=== PATIENT | female | born 1960 | race Caucasian/White ===

== ENCOUNTER 2017-01-12 05:44 | Inpatient (IN) | payer MEDICARE, MEDICAID ==
[~2017-01-12] VITALS: Ht 182.9 cm; Wt 67.5 kg
[2017-01-12] VITALS (7 sets, daily range): BP systolic 139–153; BP diastolic 81–87; PULSE 78–96; RESP 14–18; TEMP 97.6–98.2; O2SAT 97–99
[~2017-01-12 05:44] MED LIST: ALBU1AER INH; AMIT100T6 PO; CARI350T20 PO; CEPH500C3 PO; CITA-48 PO; CITA40TA4 PO; DOLU1TAB PO; EPZITAB4 PO; ESTR20IN IM; GABA300C3 PO; GABA300C5 PO; HYDR-2768 PO; HYDR-3534 PO; HYDR-3535 PO; IBUP800T23 PO; IPRAAER INH; LISI-357 PO; MIRA0.12 PO; NEXI40CA PO; SOMA350T PO
[2017-01-12] MEDS ORDERED: MIRA0.12 PO (06:11)
[2017-01-12] MEDS ORDERED: EPZITAB3 PO (06:11)
[2017-01-12] MEDS ORDERED: ALBUAER3 INH (06:11)
[2017-01-12] MEDS ORDERED: DOLU1TAB PO (06:11)
[2017-01-12] MEDS ORDERED: AMIT1TAB79 (06:11)
[2017-01-12] MEDS ORDERED: NEXI40CA PO (06:11)
[2017-01-12] MEDS ORDERED: IPRAAER INH (06:11)
[2017-01-12] MEDS ORDERED: LISI-519 PO (06:11)
[2017-01-12] MEDS ORDERED: HYDR25TA5 PO (06:11)
[2017-01-12] MEDS ORDERED: SODIUM CHLOR 0.9% 1000 ML INJ 1,000 ML IV SCH (06:21)
[2017-01-12] MEDS ORDERED: PANTOPRAZOLE INJ 80 MG in SODIUM CHLORIDE 0.9% INJ 35 ML IV ONE (06:30)
[2017-01-12] MEDS ORDERED: SODIUM CHLORIDE 0.9% FLUSH 10 ML FLUSH IVF PRN (06:30)
--- NOTE | 2017-01-12 06:36 | PD ---
HPI Chief Complaint: GI Complaint Time Seen by Provider: 05:57 Travel History International Travel<30 days: No Contact w/Intl Traveler<30days: No Traveled to known affect area: No History of Present Illness HPI The patient is 56 year old female transgender patient who presents to the [facility] emergency department with a history of rectal pain that began 2 weeks ago with a hemorrhoid. The patient reports that she suffers with chronic constipation related to a history of opiate use for chronic pain. She reports that the only way she can move her bowels this by using stool softeners or fleets enemas. She reports that the hemorrhoid has become increasingly painful. She reports that she has intermittently had blood in the stool and on the toilet paper with wiping. 3 days ago she developed dark stools and persistent bleeding with blood clots in the toilet. She reports having lower abdominal cramping. She denies ever having a colonoscopy previously. She denies having a primary care physician. She reports that she was discharged from the [facility] as she missed for appointments. The patient's history is complicated by having HIV diagnosed in 1988. The patient is on retroviral medications. She reports that her viral load is undetectable. She reports that she last moved her bowels yesterday with the bloody stool. She reports that today all that she seems to be passing are blood clots. The patient has been taking ibuprofen multiple times a day for relief of discomfort related to the hemorrhoid. The patient denies any recent fevers, cough, congestion, neck pain, chest pain, shortness of breath, vomiting, urinary symptoms, or neurologic symptoms. [facility] Past Medical History Narrative Medical The patient's past medical history is significant for HIV first diagnosed in 1988 currently on retroviral medications, history of atrial fibrillation, anxiety disorder, acid reflux, hypertension, COPD. The patient is transgender. Atrial Fibrillation: Yes Autoimmune Disease: Yes (HIV SINCE 1988) Blood Disorders: Yes (HIV X 20YEARS ) Anxiety: Yes GERD: Yes Hypertension: Yes Immunizations Current: Yes Past Surgical History Narrative Surgical The patient's past surgical history is significant for breast augmentation, umbilical hernia repair, Abdominal Surgery: Yes (UMBILICAL HERNIA) Other Surgery: Yes (BREAST AUGMENTATION) Social History Alcohol Use: Yes (RARE) Tobacco Use: Yes (OCCASIONALLY ) Substance Use: No Allergies-Medications (Allergen,Severity, Reaction): Coded Allergies: No Known Allergies (Verified , 01/12/17) Reported Meds & Prescriptions Reported Meds & Active Scripts Active Carisoprodol 350 Mg Tab 350 Mg PO TID PRN Citalopram (Citalopram Hydrobromide) 40 Mg Tab 40 Mg PO DAILY Lortab (Hydrocodone-Acetaminophen) 7.5-325 Mg Tab 1 Tab PO BID PRN Soma (Carisoprodol) 350 Mg Tab 350 Mg PO TID PRN Gabapentin 300 Mg Cap 300 Mg PO TID Ibuprofen 800 Mg Tab 800 Mg PO Q8H PRN Reported Mirapex (Pramipexole Dihydrochloride) 0.125 Mg Tab 0.125 Mg PO DAILY Lisinopril 5 Mg Tab 5 Mg PO DAILY Hydrochlorothiazide 25 Mg Tab 25 Mg PO DAILY Nexium (Esomeprazole DR) 40 Mg Capdr 40 Mg PO DAILY Tivicay (Dolutegravir Sodium) 50 Mg Tab 50 Mg PO DAILY Combivent Respimat Inh (Ipratropium-Albuterol Inh) 20-100 Intermediate/Act Aero 1 Puff INH QID Elavil (Amitriptyline HCl) 25 Mg Tab Proair Hfa 8.5 GM Inh (Albuterol Sulfate) 90 Mcg/Act Aer 1 Puff INH Q4H PRN 108 mcg/actuation Epzicom (Abacavir-Lamivudine) 600-300 Mg Tab 1 Tab PO DAILY Hazardous agent; use appropriate precautions for handling & disposal. Review of Systems Except as stated in HPI: all other systems reviewed are Neg General / Constitutional: No: Fever Eyes: No: Visual changes HENT: No: Headaches Cardiovascular: No: Chest Pain or Discomfort Respiratory: No: Shortness of Breath Gastrointestinal: Positive: Abdominal Pain, Hematochezia, Constipation, Changes in Bowel Habits, No: Nausea, Vomiting, Diarrhea, Hematemesis, Indigestion, Loss of Appetite Genitourinary: No: Dysuria Musculoskeletal: No: Pain Skin: No Rash Neurologic: No: Weakness Psychiatric: No: Depression Endocrine: No: Polydipsia Hematologic/Lymphatic: No: Easy Bruising Physical Exam Narrative General: The patient is well-developed well-nourished female in no acute distress. Head and Neck exam: Head is normocephalic atraumatic. Eyes: EOMI, pupils are equal round and reactive to light. Nose: Midline septum with pink mucous membranes Mouth: Dentition unremarkable. Moist mucus membranes. Posterior oropharynx is not erythematous. No tonsillar hypertrophy. Uvula midline. Airway patent. Neck: No palpable lymphadenopathy. No nuchal rigidity. No thyromegaly. Cardiovascular: Regular rate and rhythm without murmurs, gallops, or rubs. Lungs: Clear to auscultation bilaterally. No wheezes, rhonchi, or rales. Abdomen: Soft, with reported discomfort on palpation along the suprapubic and bilateral lower quadrants of the abdomen. No guarding, rebound, or rigidity. Normal bowel sounds are audible. No tenderness on palpation of focally over McBurney' s point. Extremities: No clubbing, cyanosis, or edema. 2+ pulses in all 4 extremities. Back: No costovertebral angle tenderness to palpation. Neurologic Exam: Grossly nonfocal. Skin Exam: No rash noted. Intact skin that is warm and dry. RECTAL EXAM: The patient has hard stool palpated in the rectal vault. Stool is dark with gross blood also noted. The patient is noted to have a thrombosed hemorrhoid that is tender on palpation. Data Data Last Documented VS Vital Signs Date Time Temp Pulse Resp B/P Pulse Ox O2 Delivery O2 Flow Rate FiO2 01/12/17 05:56 18 01/12/17 05:53 97.6 96 150/86 97 Orders Complete Blood Count With Diff (01/12/17 06:21) Comprehensive Metabolic Panel (01/12/17 06:21) Lipase (01/12/17 06:21) Prothrombin Time / Inr (Pt) (01/12/17 06:21) Act Partial Throm Time (Ptt) (01/12/17 06:21) Urinalysis - C+S If Indicated (01/12/17 06:21) Type And Screen (01/12/17 06:21) Ecg Monitoring (01/12/17 06:21) Iv Access Insert/Monitor (01/12/17 06:21) Oximetry (01/12/17 06:21) Sodium Chlor 0.9% 1000 Ml Inj (Ns 1000 M (01/12/17 06:21) Sodium Chloride 0.9% Flush (Ns Flush) (01/12/17 06:30) Pantoprazole Inj (Protonix Inj) (01/12/17 06:30) Pantoprazole Inj (Protonix Inj) (01/12/17 06:30) [facility] Medical Decision Making Medical Screen Exam Complete: Yes Emergency Medical Condition: Yes Medical Record Reviewed: Yes Differential Diagnosis Diverticulosis, versus AVM malformation, versus hemorrhoidal bleed, versus colon cancer, versus rectal cancer, versus peptic ulcer disease Narrative Course During the course of the patients emergency department visit, the patients history, examination, and differential diagnosis were reviewed with the patient. The patient had IV access obtained and blood work sent for analysis. The patient was on a irb compliance coordinator with oximetry and blood pressure monitoring. A CT scan of the abdomen and pelvis was ordered. The patient was initially provided normal saline IV fluids, Protonix 80 mg IV 1 , Protonix drip was ordered to follow up The patients laboratory studies were reviewed and remarkable for a white count of 5.5, hemoglobin 12, platelets 271 with 9.1, CMP is pending, PT PTT pending. CT scan of the abdomen and pelvis is pending. While the patient was being observed in the emergency department, the patient had an episode of bright red blood and clots reduced in the toilet when she attempted to go to the bathroom to move her bowels. The patient's case will be checked out to the oncoming emergency physician to disposition based on the conclusion of the patient's workup. Diagnosis Primary Impression: GI bleed Qualified Code: K92.2 - Gastrointestinal hemorrhage, unspecified gastrointestinal hemorrhage type Additional Impression: Thrombosed external hemorrhoid Quita Boykin MD January 12, 2017 06:36
[2017-01-12 06:50] LABS: AUTOMATED NEUTROPHIL # 2.6 TH/MM3 (1.8-7.7); BASOPHIL % 0.8 % (0.0-2.0); EOSINOPHIL # 0.1 TH/MM3 (0-0.4); EOSINOPHIL % 2.1 % (0.0-4.0); HEMO FLAGS DIFF FINAL; LYMPH % 41.4 % (9.0-44.0); LYMPHOCYTE # 2.3 TH/MM3 (1.0-4.8); MEAN CELL VOLUME 85.3 FL (80.0-100.0); MEAN CORPUSCULAR HEMOGLOBIN 29.3 PG (27.0-34.0); MEAN CORPUSCULAR HGB CONC 34.4 % (32.0-36.0); MONO % 9.1 % (0.0-8.0); NEUT % 46.6 % (16.0-70.0); PLATELET COUNT 271 TH/MM3 (150-450); RED BLOOD COUNT 4.11 MIL/MM3 (4.00-5.30); RED CELL DISTRIBUTION WIDTH 14.8 % (11.6-17.2); WHITE BLOOD COUNT 5.5 TH/MM3 (4.0-11.0)
[2017-01-12 07:01] LABS: ALKALINE PHOSPHATASE 107 U/L (45-117); TOTAL BILIRUBIN ADULT 0.3 MG/DL (0.2-1.0)
[2017-01-12 07:04] LABS: APTT (PATIENT) 24.2 SEC (24.3-30.1); INTERNATIONAL NORMALIZED RATIO 0.9 RATIO; PROTHROMBIN TIME - PATIENT 10.3 SEC (9.8-11.6)
[2017-01-12] MEDS: PANTOPRAZOLE INJ 80 MG in SODIUM CHLORIDE 0.9% INJ 100 ML IV SCH ×2 (07:05→16:30)
[2017-01-12 07:08] LABS: ALT (GPT) 30 U/L (10-53); ANION GAP 7 MEQ/L (5-15); BICARBONATE 22.1 MEQ/L (21.0-32.0); BLOOD UREA NITROGEN 19 MG/DL (7-18); CHLORIDE 109 MEQ/L (98-107); GLOMERULAR FILTRATION RATE 68 ML/MIN (>89); SODIUM (NA) 138 MEQ/L (136-145)
[2017-01-12 07:11] LABS: AST (GOT) 44 U/L (15-37); POTASSIUM 3.2 MEQ/L (3.5-5.1)
--- NOTE | 2017-01-12 09:25 | RADRPT ---
EXAM DATE/TIME: 01/12/2017 08:25 This report includes an Addendum and supersedes previous reports for this exam. [place] COMPARISON: No previous studies available for comparison. INDICATIONS : Rectal bleeding for 7 days ORAL CONTRAST: No oral contrast ingested. RADIATION DOSE: 9.96 CTDIvol (mGy) MEDICAL HISTORY : Hypertension. HIV. SURGICAL HISTORY : None. ENCOUNTER: Initial ACUITY: 1 week PAIN SCALE: 0/10 LOCATION: lower quadrant TECHNIQUE: Volumetric scanning of the abdomen and pelvis was performed. Using automated exposure control and ad justment of the mA and/or kV according to patient size, radiation dose was kept as low as reasonably achievable to obtain optimal diagnostic quality images. FINDINGS: There is parenchymal scarring on the right. Moderate scoliotic deformity is present to the right with a rotatory component with the apex at L2. There is prominent dependent edema posteriorly with marked increased density of the subcutaneous tissues. The liver and spleen are normal in size and no focal defects are identified. There is a single stone within the gallbladder without wall thickening or pericholecystic fluid measuring 5 mmThe pancreas de monstrates no evidence of mass and there is no dilatation of the pancreatic duct. The adrenal glands and kidneys appear normal bilaterally. No hydronephrosis or mass lesions are identified. Examination of the pelvis demonstrates no evidence of free fluid or pelvic mass. No abnormally enlarg ed inguinal or retroperitoneal lymph nodes are present. The bladder is unremarkable. There is abnorma l soft tissue density in the rectum with irregular mucosa suspicious for neoplasm. Colonoscopy is rec ommended for further evaluation if clinically indicated. There is diverticulosis without evidence of diverticulitis. CONCLUSION: 1. Mucosal pneumonia in the rectum suspicious for neoplasm. Direct visualization is recommended 2. Cholelithiasis René Soriano MD on January 12, 2017 at 9:18 Board Certified Radiologist. This report was verified electronically. ADDENDUM: The impression is incorrect and should say in #1 mucosal abnormality in the rectum René Soriano MD on January 12, 2017 at 10:30 Board Certified Radiologist. This report was verified electronically.
[2017-01-12] MEDS ORDERED: MORPHINE SULFATE 4 MG/ML INJ IV PUSH ONE ×2 (10:30→15:00)
[2017-01-12 11:07] LABS: BLOOD, URINE NEG (NEG); COMMENT (UR) CULT NOT INDICATED; CULTURE IF INDICATED CULT NOT INDICATED; GLUCOSE,URINE NEG (NEG); HYALINE CAST, URINE 12 /lpf (RARE); KETONE, URINE NEG (NEG); MUCUS URINE FEW /lpf (OCC); NITRITE,URINE NEG (NEG); PH, URINE 6.5 (5.0-8.5); SQUAMOUS EPITHELIAL CELL URINE 1 /hpf (0-5); URINE COLOR YELLOW (YELLW/STRAW)
[2017-01-12] MEDS ORDERED: SODIUM CHLORIDE 0.9% FLUSH 10 ML FLUSH IV FLUSH PRN (11:30)
[2017-01-12] MEDS ORDERED: ALBUTEROL SULFATE 90 MCG/ACT HFA 8 GM INHALER INH PRN (11:30)
[2017-01-12] MEDS ORDERED: NALOXONE HCL 0.4 MG/ML AMP IV PRN (11:30)
[2017-01-12] MEDS ORDERED: ONDANSETRON HCL 4 MG/2 ML VIAL IVP PRN (11:30)
[2017-01-12] MEDS ORDERED: POTASSIUM CHLORIDE 10 MEQ CONTROLLED RELEASE TAB PO ONE (11:45)
[2017-01-12] MEDS: IPRATROPIUM ALBUTEROL INH SCH ×3 (13:15→21:00)
[2017-01-12] MEDS ORDERED: SOD PHOSPHATE/SOD BIPHOSPHATE (ADULT) ENEMA 133ML RECTAL ONE (13:30)
[2017-01-12] MEDS: CARISOPRODOL 350 MG TAB PO PRN (14:44)
[2017-01-12] MEDS: GABAPENTIN 300 MG CAP PO SCH ×2 (14:44→18:14)
[2017-01-12] MEDS: SODIUM CHLOR 0.9% 1000 ML INJ 1,000 ML IV SCH (14:49)
--- NOTE | 2017-01-12 17:39 | HHI.HP ---
[facility] No Primary Care Physician Admission Diagnosis rectal bleeding Diagnoses: Travel History International Travel<30 Days: No Contact w/Intl Traveler <30 Da: No Traveled to Known Affected Are: No History of Present Illness 56-year-old transgender female with history of HIV, who presents for a 7 week history of gradually worsening bloody stools, with a 4 to five-day history of constant sharp, nonradiating rectal pain. She reports weight loss, but is not sure how much. She denies any fevers, cough, chest pain. She reports gradual worsening of generalized fatigue. Review of Systems performed and negative except for HPI and past medical history. Past Family Social History Past Medical History Hypertension HIV positive. COPD Transgender, status post orchiectomy Constipation Past Surgical History Hernia surgery Left hip pinning in 2011 breast implants Reported Medications Reported Meds & Active Scripts Active Carisoprodol 350 Mg Tab 350 Mg PO TID PRN Citalopram (Citalopram Hydrobromide) 40 Mg Tab 40 Mg PO DAILY Lortab (Hydrocodone-Acetaminophen) 7.5-325 Mg Tab 1 Tab PO BID PRN Soma (Carisoprodol) 350 Mg Tab 350 Mg PO TID PRN Gabapentin 300 Mg Cap 300 Mg PO TID Ibuprofen 800 Mg Tab 800 Mg PO Q8H PRN Reported Mirapex (Pramipexole Dihydrochloride) 0.125 Mg Tab 0.125 Mg PO DAILY Lisinopril 5 Mg Tab 5 Mg PO DAILY Hydrochlorothiazide 25 Mg Tab 25 Mg PO DAILY Nexium (Esomeprazole DR) 40 Mg Capdr 40 Mg PO DAILY Tivicay (Dolutegravir Sodium) 50 Mg Tab 50 Mg PO DAILY Combivent Respimat Inh (Ipratropium-Albuterol Inh) 20-100 Residential/Act Aero 1 Puff INH QID Elavil (Amitriptyline HCl) 25 Mg Tab Proair Hfa 8.5 GM Inh (Albuterol Sulfate) 90 Mcg/Act Aer 1 Puff INH Q4H PRN 108 mcg/actuation Epzicom (Abacavir-Lamivudine) 600-300 Mg Tab 1 Tab PO DAILY Hazardous agent; use appropriate precautions for handling & disposal. Allergies: Coded Allergies: No Known Allergies (Verified , 01/12/17) Family History Father from throat cancer Brother from colon cancer in his 50s. Social History Patient reports smoking one half pack per day since the age of 18. Patient reports occasional alcohol Physical Exam Vital Signs Vital Signs Date Time Temp Pulse Resp B/P Pulse Ox O2 Delivery O2 Flow Rate FiO2 01/12/17 15:45 78 15 140/82 97 01/12/17 15:44 16 01/12/17 14:00 79 14 99 Room Air 01/12/17 07:07 81 14 139/81 97 Room Air 01/12/17 07:06 81 14 139/81 98 Room Air 01/12/17 05:56 18 01/12/17 05:53 97.6 96 18 150/86 97 Physical Exam GENERAL: This is a well-nourished, well-developed patient. expresses fatigue.alert and oriented 3. SKIN: No rashes, ecchymoses or lesions. Cool and dry. HEAD: Atraumatic. Normocephalic. No temporal or scalp tenderness. EYES: Pupils equal round and reactive. Extraocular motions intact. No scleral icterus. No injection or drainage. ENT: Nose without bleeding, purulent drainage or septal hematoma. Throat without erythema, tonsillar hypertrophy or exudate. Uvula midline. Airway patent. NECK: Trachea midline. No JVD or lymphadenopathy. Supple, nontender, no meningeal signs. CARDIOVASCULAR: Regular rate and rhythm without murmurs, gallops, or rubs. RESPIRATORY: Clear to auscultation. Breath sounds equal bilaterally. No wheezes , rales, or rhonchi. GASTROINTESTINAL: Abdomen soft, non-tender, nondistended. No hepato-splenomegaly , or palpable masses. No guarding. MUSCULOSKELETAL: Extremities without clubbing, cyanosis, or edema. No joint tenderness, effusion, or edema noted. No calf tenderness. Negative Homans sign bilaterally. NEUROLOGICAL: Awake and alert. Cranial nerves II through XII intact. Motor and sensory grossly within normal limits. Five out of 5 muscle strength in all muscle groups. Normal speech. Laboratory Laboratory Tests Test 01/12/17 01/12/17 01/12/17 06:15 10:32 13:24 White Blood Count 5.5 Red Blood Count 4.11 Hemoglobin 12.0 11.0 Hematocrit 35.0 Mean Corpuscular Volume 85.3 Mean Corpuscular Hemoglobin 29.3 Mean Corpuscular Hemoglobin 34.4 Concent Red Cell Distribution Width 14.8 Platelet Count 271 Mean Platelet Volume 7.6 Neutrophils (%) (Auto) 46.6 Lymphocytes (%) (Auto) 41.4 Monocytes (%) (Auto) 9.1 Eosinophils (%) (Auto) 2.1 Basophils (%) (Auto) 0.8 Neutrophils # (Auto) 2.6 Lymphocytes # (Auto) 2.3 Monocytes # (Auto) 0.5 Eosinophils # (Auto) 0.1 Basophils # (Auto) 0.0 CBC Comment DIFF FINAL Differential Comment Prothrombin Time 10.3 Prothromb Time International 0.9 Ratio Activated Partial 24.2 Thromboplast Time Sodium Level 138 Potassium Level 3.2 Chloride Level 109 Carbon Dioxide Level 22.1 Anion Gap 7 Blood Urea Nitrogen 19 Creatinine 0.86 Estimat Glomerular Filtration 68 Rate Random Glucose 92 Calcium Level 8.2 Total Bilirubin 0.3 Aspartate Amino Transf 44 (AST/SGOT) Alanine Aminotransferase 30 (ALT/SGPT) Alkaline Phosphatase 107 Total Protein 7.1 Albumin 3.0 Lipase 115 Blood Type O POSITIVE Antibody Screen NEGATIVE Blood Bank Comment Urine Color YELLOW Urine Turbidity HAZY Urine pH 6.5 Urine Specific [place] 1.024 Urine Protein 30 Urine Glucose (UA) NEG Urine Ketones NEG Urine Occult Blood NEG Urine Nitrite NEG Urine Bilirubin NEG Urine Urobilinogen 2.0 Urine Leukocyte Esterase NEG Urine RBC 4 Urine WBC 2 Urine Squamous Epithelial 1 Cells Urine Amorphous Sediment RARE Urine Hyaline Casts 12 Urine Mucus FEW Microscopic Urinalysis Comment CULT NOT INDICATED Result Diagram: 01/12/17 1324 01/12/17 0615 Imaging Last Impressions Abdomen/Pelvis CT 01/12/17 0702 Signed Impressions: Service Date/Time: Thursday, January 12, 2017 08:25 - CONCLUSION: 1. Mucosal pneumonia in the rectum suspicious for neoplasm. Direct visualization is recommended 2. Cholelithiasis René Soriano MD ADDENDUM: The impression is incorrect and should say in #1 mucosal abnormality in the rectum René Soriano MD Assessment and Plan Assessment and Plan //Lower GI bleed //Lower GI mass. //Worsening fatigue, weight loss. //Suspected lower GI malignancy -CT abdomen as above. Monitor hemoglobin. Blood transfusion as necessary Discussed with gastroenterology, who has performed sigmoidectomy, recommends continued monitoring. //Chronic pain. Continue gabapentin, resolved //Hypertension. Blood pressure acceptable. Due to some dehydration, will hold off on lisinopril and hydrochlorothiazide for now. Continue to monitor blood pressure and adjust medications as necessary. //HIV. Check CD4. Continue HAART meds. To follow up with infectious disease at discharge. //Hypokalemia. Replace. Monitor. //Tobaccoism. Cessation counseling provided. Cessation strongly advised. //GERD. Continue PPI. Discussed Condition With patient, nurse, ED physician, associate school psychologist. Physician Certification 2 Midnight Certification Type: Admission for Inpatient Services Order for Inpatient Services The services are ordered in accordance with Medicare regulations or non- Medicare payer requirements, as applicable. In the case of services not specified as inpatient-only, they are appropriately provided as inpatient services in accordance with the 2-midnight benchmark. Estimated LOS (days): 2 days is the estimated time the patient will need to remain in the hospital, assuming treatment plan goals are met and no additional complications. Post-Hospital Plan: Not yet determined Anup Floyd MD January 12, 2017 17:39
[2017-01-12] MEDS: ACETAMINOPHEN/HYDROcodone 325 MG/5 MG TAB PO PRN (18:14)
[2017-01-12] MEDS: SODIUM CHLORIDE 0.9% FLUSH 10 ML FLUSH IV FLUSH SCH (20:20)
[2017-01-13] VITALS: BP 132/76; PULSE 84; RESP 22; TEMP 98.4; O2SAT 98
[2017-01-13] MEDS: CARISOPRODOL 350 MG TAB PO PRN ×3 (00:10→20:53)
[2017-01-13] MEDS: ACETAMINOPHEN/HYDROcodone 325 MG/5 MG TAB PO PRN (00:11)
[2017-01-13] MEDS ORDERED: HYDROmorphone HCL PF 1 MG/ML VIAL IV PUSH ONE (03:00)
[2017-01-13] MEDS: SODIUM CHLOR 0.9% 1000 ML INJ 1,000 ML IV SCH ×4 (03:11→23:36)
[2017-01-13] MEDS: PANTOPRAZOLE INJ 80 MG in SODIUM CHLORIDE 0.9% INJ 100 ML IV SCH ×2 (03:50→13:18)
[2017-01-13 04:00] VITALS: BP 133/81; PULSE 80; RESP 22; TEMP 98.3; O2SAT 96
[2017-01-13 04:13] LABS: BICARBONATE 23.4 MEQ/L (21.0-32.0); POTASSIUM 3.9 MEQ/L (3.5-5.1)
[2017-01-13 04:15] LABS: INDIRECT BILIRUBIN 0.1 MG/DL (0.0-0.8); TOTAL BILIRUBIN ADULT 0.2 MG/DL (0.2-1.0)
[2017-01-13 07:39] VITALS: BP 127/69; PULSE 90; RESP 16; TEMP 98.5; O2SAT 98
[2017-01-13] MEDS: ACETAMINOPHEN/HYDROcodone 325 MG/10 MG TAB PO PRN ×3 (07:49→23:36)
[2017-01-13] MEDS: IPRATROPIUM ALBUTEROL INH SCH ×4 (09:00→20:53)
[2017-01-13] MEDS: SODIUM CHLORIDE 0.9% FLUSH 10 ML FLUSH IV FLUSH SCH ×2 (09:00→20:54)
[2017-01-13] MEDS ORDERED: NON-FORMULARY DRUG (Abacavir-Lamivudine (Epzicom) 1 TAB) PO SCH (09:00)
[2017-01-13] MEDS ORDERED: PANTOPRAZOLE SOD 40 MG DELAYED RELEASE TAB PO SCH (09:00)
[2017-01-13] MEDS: DOLUTEGRAVIR SODIUM 50 MG TAB PO SCH (09:09)
[2017-01-13] MEDS: CITALOPRAM HYDROBROMIDE 40 MG TAB PO SCH (09:10)
[2017-01-13] MEDS: GABAPENTIN 300 MG CAP PO SCH ×3 (09:10→17:53)
[2017-01-13] MEDS: PRAMIPEXOLE DIHYDROCHLORIDE 0.25 MG TAB PO SCH (09:10)
[2017-01-13] MEDS: ABACAVIR SULFATE 300 MG TAB PO SCH (09:10)
--- NOTE | 2017-01-13 09:47 | HHI.PR ---
Subjective Remarks Follow up rectal pain. Patient still complaining of rectal pain, 02/05, she states the Dilaudid she was given last night help a lot. She denies any chest pain, sob, fever or chills. She is just uncomfortable in bed due to the pain. Objective Vitals Vital Signs Date Time Temp Pulse Resp B/P Pulse Ox O2 Delivery O2 Flow Rate FiO2 01/13/17 07:39 98.5 90 16 127/69 98 01/13/17 04:00 98.3 80 22 133/81 96 01/13/17 00:00 98.4 84 22 132/76 98 01/12/17 20:38 97 21 01/12/17 16:00 98.2 78 18 153/87 99 01/12/17 15:45 78 15 140/82 97 01/12/17 15:44 16 01/12/17 14:00 79 14 99 Room Air I/O 01/12/17 01/12/17 01/12/17 01/13/17 01/13/17 01/13/17 07:00 15:00 23:00 07:00 15:00 23:00 Intake Total 1000 ml Balance 1000 ml Intake Oral 1000 ml # Voids 3 Result Diagram: 01/13/17 0259 01/13/17 0259 Objective Remarks GENERAL: This is a well-nourished, well-developed patient. Alert and oriented 3. SKIN: No rashes, ecchymoses or lesions. Cool and dry. HEAD: Atraumatic. Normocephalic. No temporal or scalp tenderness. EYES: Pupils equal round and reactive. Extraocular motions intact. No scleral icterus. No injection or drainage. ENT: Nose without bleeding, purulent drainage or septal hematoma. Airway patent. NECK: Trachea midline. No JVD or lymphadenopathy. CARDIOVASCULAR: Regular rate and rhythm without murmurs, gallops, or rubs. RESPIRATORY: Clear to auscultation. Breath sounds equal bilaterally. No wheezes , rales, or rhonchi. GASTROINTESTINAL: Abdomen soft, non-tender, nondistended. No hepato-splenomegaly , or palpable masses. No guarding. MUSCULOSKELETAL: Extremities without clubbing, cyanosis, or edema. No joint tenderness, effusion, or edema noted. No calf tenderness. NEUROLOGICAL: Awake and alert. Motor and sensory grossly within normal limits. Normal Medications and IVs Current Medications Medications (Trade) Dose Ordered Sig/Estefani Route Start Time Stop Time Status Last Admin Pantoprazole Sodium 80 mg/ Sodium Chloride 100 ml @ 10 mls/hr Q10H IV 01/12/17 06:30 01/13/17 03:50 (NS 1000 ml Inj) 1,000 ml @ 100 mls/hr Q10H IV 01/12/17 12:00 01/13/17 03:11 (NS Flush) 2 ml UNSCH PRN IV FLUSH 01/12/17 11:30 (NS Flush) 2 ml BID IV FLUSH 01/12/17 21:00 (Zofran Inj) 4 mg Q6H PRN IVP 01/12/17 11:30 (Narcan Inj) 0.4 mg UNSCH PRN IV 01/12/17 11:30 (Proair Hfa Inh) 1 puff Q4H PRN INH 01/12/17 11:30 (Soma) 350 mg TID PRN PO 01/12/17 13:00 01/13/17 00:10 (CeleXA) 40 mg DAILY PO 01/13/17 09:00 01/13/17 09:10 (Neurontin) 300 mg TID PO 01/12/17 13:00 01/13/17 09:10 (Mirapex) 0.125 mg DAILY PO 01/13/17 09:00 01/13/17 09:10 (Protonix) 40 mg DAILY PO 01/13/17 09:00 Hold Patient Own Medication PT OWN MED: (Ipratropium-Albutero... QID INH 01/12/17 13:15 (Epivir) 300 mg DAILY PO 01/13/17 09:00 01/13/17 09:10 (Ziagen) 600 mg DAILY PO 01/13/17 09:00 01/13/17 09:10 ([place] 5-325 Mg) 1 tab Q4H PRN PO 01/12/17 17:45 01/13/17 00:11 ([place] 10-325 Mg) 1 tab Q4H PRN PO 01/12/17 17:45 01/13/17 07:49 A/P Problem List: (1) GI bleed ICD Code: K92.2 Status: Acute (2) HIV disease ICD Code: B20 Status: Chronic (3) HTN (hypertension) ICD Code: I10 Status: Chronic Assessment and Plan 56-year-old transgender female with history of HIV, who presents for a 7 week history of gradually worsening bloody stools, with a 4 to five-day history of constant sharp, nonradiating rectal pain. She reports weight loss, but is not sure how much. Lower GI bleed, with worsening fatigue, weight loss. Lower GI mass found by colonoscopy, Suspected lower GI malignancy CT abdomen shows Mucosal abnormality in the rectum suspicious for neoplasm. Direct visualization is Monitor hemoglobin. Blood transfusion as necessary HGB 12-->11.5 -gastroenterology, following, preformed colonoscopy with biopsy, recommends continued monitoring. -Consult medical oncology for recommendations -Pain management with Strat[place] and IV Dilaudid Chronic pain. Continue gabapentin, resolved Hypertension, chronic, Blood pressure controlled. -Due to some dehydration, will hold off on lisinopril and hydrochlorothiazide for now. Continue to monitor blood pressure and adjust medications as necessary. HIV, chronic -Check CD4. Continue HAART meds. -To follow up with infectious disease at discharge. Hypokalemia. Potassium 3.2-->3.9 Replaced. Cont to Monitor. Tobaccoism, chronic -Cessation counseling provided. Encouraged to quit GERD, chronic - Continue PPI. DVT prophylaxis: SCDs, due to rectal bleeding will hold chemical prophylaxis Discharge Planning Pending oncology workup Problem Qualifiers (1) GI bleed: Qualified Code: K92.2 - Gastrointestinal hemorrhage, unspecified gastrointestinal hemorrhage type MargueriteKelsea DANG January 13, 2017 09:47
[2017-01-13] MEDS: HYDROmorphone HCL PF 1 MG/ML VIAL IV PUSH PRN ×3 (10:09→17:53)
[2017-01-13 11:35] VITALS: BP 120/72; PULSE 99; RESP 18; TEMP 99.2; O2SAT 95
--- NOTE | 2017-01-13 13:38 | MB ---
cc: ESE CARDENAS M.D. DATE OF CONSULTATION 01/13/[address] Floyd REASON FOR CONSULTATION Oncology consult to render opinion regarding patient with possible rectal cancer. HISTORY OF PRESENT ILLNESS The patient is a 56-year-old transgender female with history of HIV who presented to the hospital with a complaint of increased rectal pain for the last four to five days. She stated she has been having blood in stool for the last two months. Over the last week, she has increased pain that brought her to the hospital. She has lost some weight and estimated about 10-15 pounds. She has increased fatigue. Denies any fever or chills. Denies any chest pain or shortness of breath. Denies any nausea or vomiting. She has abdominal bloating. No dysuria or hematuria. She has chronic pain in her left hip and has been on narcotics. She stated that her HIV was well controlled. Her CD-4 count was around 1200 with a non-detectable viral load when she had a test done about a year ago. PAST MEDICAL HISTORY 1. HIV 2. Hypertension 3. Chronic obstructive pulmonary disease 4. Chronic constipation 5. Neuropathy PAST SURGICAL HISTORY 1. Hernia surgery 2. Left hip pinning surgery 3. Breast implant 4. Transgender surgery with orchiectomy. FAMILY HISTORY Father of throat cancer. Brother of colon cancer. SOCIAL HISTORY Has smoked a half-a-pack a day for 30 years. Drinks occasionally. ALLERGIES NO KNOWN DRUG ALLERGIES. CURRENT MEDICATIONS 1. Celexa 2. Mirapex 3. Epivir 4. Ziagen 5. Soma 6. Neurontin 7. Pantoprazole REVIEW OF SYSTEMS CONSTITUTIONAL: Denies fever or chills. She has about a 10-15 pound weight loss. EYES: Denies any blurry vision or double vision. ENT: No mouth sores or voice changes. CARDIOVASCULAR: Denies chest pressure or palpitation. RESPIRATORY: Denies any shortness of breath or cough. GI: As above. : Denies any dysuria or hematuria. MUSCULOSKELETAL: No bone pain. She has chronic left hip pain HEMATOLOGY: Negative. ENDOCRINE: Negative. DERMATOLOGY: Negative. PSYCHIATRIC: Negative. NEUROLOGIC: Negative. PHYSICAL EXAMINATION Temperature 99.2, blood pressure 120/72, O2 saturation 95% room air. GENERAL: She is alert and oriented x3 in no acute distress. HEENT: Atraumatic, normocephalic. Pupils equal, round and reactive to light. Extraocular muscles intact. No scleral icterus. Oropharynx, dry mucosa. No lesion. NECK: No thyromegaly. No palpable masses. LYMPHATICS: No palpable cervical, clavicular, axillary or inguinal lymph nodes. CARDIOVASCULAR: Regular S1-S2, no murmurs. LUNGS: Clear to auscultation bilaterally. No wheezing or rhonchi. ABDOMEN: Soft, nontender. EXTREMITIES: No cyanosis, clubbing or edema. SKIN: No rash or petechiae. NEUROLOGIC: Exam nonfocal. LABORATORY DATA Reviewed ASSESSMENT 1. Rectal pain with GI bleed. This has been going on for about two months, but the pain increased over the last five days. She also has constitutional symptoms and lost about 10-15 pounds. Reportedly, she had flexible sigmoidoscopy, but the report is not available yet. This is suspicious for rectal cancer versus anal cancer. We will need the GI report to determine the location of the tumor. I am going to check a CEA and get a CT of the chest to complete the staging. If she has localized rectal cancer, she would need preoperative radiation with chemotherapy followed by surgical resection. I explained workup and management plan to the patient. Her questioned were answered. 2. HIV. She stated it was well-controlled. Her CD-4 was 1200 and viral load was nondetectable a year ago. Repeat test is pending. 3. Chronic obstructive pulmonary disease. She is still smoking. 4. Chronic constipation. 5. Chronic neuropathy on Gabapentin. 6. Chronic hip pain. RECOMMENDATIONS 1. Arrange for CT of the chest. 2. Await GI report and pathology report. 3. Check tumor marker. 4. Will need evaluation by colorectal surgeon and radiation Oncologist if confirmed to have rectal cancer. 5. Thank you Dr. Floyd for asking us to see this patient. MD KATIE Coyle/KIRSTEN /12:34 PM /1:16 PM [facility]
[2017-01-13 16:04] VITALS: BP 115/72; PULSE 89; RESP 16; TEMP 98.1; O2SAT 95
--- NOTE | 2017-01-13 17:41 | HHI.GIFU ---
Subjective Remarks Pt resting comfortably in bed, in no apparent distress. She is c/o rectal pain and continued bleeding. No n/v. Objective Vitals I&O Vital Signs Date Time Temp Pulse Resp B/P Pulse Ox O2 Delivery O2 Flow Rate FiO2 01/13/17 16:04 98.1 89 16 115/72 95 01/13/17 11:35 99.2 99 18 120/72 95 01/13/17 07:39 98.5 90 16 127/69 98 01/13/17 04:00 98.3 80 22 133/81 96 01/13/17 00:00 98.4 84 22 132/76 98 01/12/17 20:38 97 21 I/O 01/12/17 01/12/17 01/12/17 01/13/17 01/13/17 01/13/17 07:00 15:00 23:00 07:00 15:00 23:00 Intake Total 1000 ml Balance 1000 ml Intake Oral 1000 ml # Voids 3 1 Laboratory Laboratory Tests Test 01/12/17 01/13/17 01/13/17 20:38 02:59 12:26 Hemoglobin 11.0 11.5 9.9 Sodium Level 139 Potassium Level 3.9 Chloride Level 110 Carbon Dioxide Level 23.4 Anion Gap 6 Blood Urea Nitrogen 14 Creatinine 0.76 Estimat Glomerular Filtration 79 Rate Random Glucose 77 Calcium Level 8.0 Total Bilirubin 0.2 Direct Bilirubin 0.1 Indirect Bilirubin 0.1 Aspartate Amino Transf 33 (AST/SGOT) Alanine Aminotransferase 25 (ALT/SGPT) Alkaline Phosphatase 89 Total Protein 6.7 Albumin 2.8 Imaging Last Impressions Abdomen/Pelvis CT 01/12/17 0702 Signed Impressions: Service Date/Time: Thursday, January 12, 2017 08:25 - CONCLUSION: 1. Mucosal pneumonia in the rectum suspicious for neoplasm. Direct visualization is recommended 2. Cholelithiasis René Soriano MD ADDENDUM: The impression is incorrect and should say in #1 mucosal abnormality in the rectum René Soriano MD Physical Exam HEENT: EOMI; normocephalic; atraumatic; no jaundice. CHEST: CTA CARDIAC: RRR ABDOMEN: Soft, nondistended, nontender; no hepatosplenomegaly; bowel sounds are present in all four quadrants. EXTREMITIES: No clubbing, cyanosis, or edema. SKIN: Normal; no rash; no jaundice. COMPUTER SUPPORT TECHNICIAN: No focal deficits; alert and oriented times three. Assessment and Plan Plan ASSESSMENT - rectal bleeding - s/p flex sig, op report pending. CT 01-12-17--> 1. Mucosal abnormality in the rectum suspicious for neoplasm. Direct visualization is recommended 2. Cholelithiasis . Oncology following, tumor markers pending, CT thorax for staging purposes is pending. Will consult colorectal - anemia - hgb 9.9, decreasing PLAN - monitor HH - transfuse PRN - consult colorectal - await tumor markers This pt seen by myself and Dr Hobson and this note is written on his behalf. Enid Resendiz BED AND BREAKFAST OPERATOR January 13, 2017 17:41
[2017-01-13 19:33] VITALS: BP 128/60; PULSE 94; RESP 19; TEMP 100.2; O2SAT 93
[2017-01-14 00:12] VITALS: BP 122/68; PULSE 102; RESP 19; TEMP 102.1; O2SAT 94
[2017-01-14] MEDS ORDERED: ACETAMINOPHEN 325 MG TAB PO PRN (00:30)
[2017-01-14] MEDS: LEVOFLOXACIN 750 MG PREMIX INJ 150 ML IV SCH (00:47)
[2017-01-14] MEDS: PANTOPRAZOLE INJ 80 MG in SODIUM CHLORIDE 0.9% INJ 100 ML IV SCH ×3 (00:47→13:55)
[2017-01-14] MEDS: metroNIDAZOLE 500 MG INJ 100 ML IV SCH ×4 (00:47→17:47)
--- NOTE | 2017-01-14 01:19 | RADRPT ---
EXAM DATE/TIME: 01/14/2017 00:40 [facility] COMPARISON: CHEST SINGLE AP, May 19, 2015, 23:23. INDICATIONS : Fever, cough. MEDICAL HISTORY : Hypertension. HIV. SURGICAL HISTORY : None. ENCOUNTER: Initial ACUITY: 1 day PAIN SCORE: 0/10 LOCATION: Bilateral chest FINDINGS: A single view of the chest demonstrates the lungs to be symmetrically aerated without evidence of mas s, infiltrate or effusion. The cardiomediastinal contours are unremarkable. Osseous structures are intact. CONCLUSION: 1. No acute findings. Mild hyperinflation. Héctor Roldan MD on January 14, 2017 at 1:14 Board Certified Radiologist. This report was verified electronically.
[2017-01-14] MEDS: HYDROmorphone HCL PF 1 MG/ML VIAL IV PUSH PRN ×5 (02:36→21:18)
[2017-01-14] MEDS ORDERED: IOHEXOL 350 MG/ML 10 ML VIAL (for RAD DIAG) IV ONE (03:19)
[2017-01-14 03:41] LABS: HEMATOCRIT 28.6 % (35.0-46.0); MEAN CELL VOLUME 85.8 FL (80.0-100.0); MEAN CORPUSCULAR HEMOGLOBIN 30.4 PG (27.0-34.0); MEAN CORPUSCULAR HGB CONC 35.4 % (32.0-36.0); PLATELET COUNT 180 TH/MM3 (150-450); RED BLOOD COUNT 3.33 MIL/MM3 (4.00-5.30); RED CELL DISTRIBUTION WIDTH 14.7 % (11.6-17.2); REVIEW FLAG FINAL; WHITE BLOOD COUNT 4.7 TH/MM3 (4.0-11.0)
--- NOTE | 2017-01-14 03:48 | RADRPT ---
EXAM DATE/TIME: 01/14/2017 03:01 [facility] COMPARISON: No previous studies available for comparison. INDICATIONS : Abnormal abdominal CT. Evaluate for mass. IV CONTRAST: 60 cc Omnipaque 350 (iohexol) IV RADIATION DOSE: 3.64 CTDIvol (mGy) MEDICAL HISTORY : Cardiovascular disease. Hypertension. HIV. SURGICAL HISTORY : None. ENCOUNTER: Initial ACUITY: 1 day PAIN SCALE: 0/10 LOCATION: chest TECHNIQUE: Volumetric scanning of the chest was performed. Using automated exposure control and adjustment of t he mA and/or kV according to patient size, radiation dose was kept as low as reasonably achievable to obtain optimal diagnostic quality images. FINDINGS: There is groundglass opacity in the lungs involving the anterior segment left upper lobe and posterio r aspect of the right lower lobe. Primary differential diagnosis is a mild bronchopneumonia. There is mild underlying centrilobular emphysema. No pleural or pericardial effusion. No pathologically enlarged lymph nodes in the cammie, mediastinum o r axillary regions. No acute findings in the upper abdomen. Partially calcified gallstone present. Pr evious breast augmentation. CONCLUSION: 1. Patchy groundglass opacity present including anterior segment left upper lobe and along posterior aspect of the right lower lobe. Primary differential diagnosis is a mild bronchopneumonia. There is a lso underlying mild centrilobular emphysema. No effusion or adenopathy. Héctor Roldan MD on January 14, 2017 at 3:40 Board Certified Radiologist. This report was verified electronically.
[2017-01-14 03:51] VITALS: BP 102/63; PULSE 88; RESP 19; TEMP 99.2; O2SAT 92
[2017-01-14 03:57] LABS: BICARBONATE 22.1 MEQ/L (21.0-32.0); POTASSIUM 3.7 MEQ/L (3.5-5.1)
[2017-01-14] MEDS: CARISOPRODOL 350 MG TAB PO PRN ×3 (06:32→22:55)
[2017-01-14 08:34] VITALS: BP 119/74; PULSE 88; RESP 18; TEMP 98.2; O2SAT 95
[2017-01-14] MEDS: IPRATROPIUM ALBUTEROL INH SCH ×4 (09:00→20:26)
[2017-01-14] MEDS: SODIUM CHLORIDE 0.9% FLUSH 10 ML FLUSH IV FLUSH SCH ×2 (09:00→19:47)
[2017-01-14] MEDS: GABAPENTIN 300 MG CAP PO SCH ×3 (09:12→17:43)
[2017-01-14] MEDS: CITALOPRAM HYDROBROMIDE 40 MG TAB PO SCH (09:12)
[2017-01-14] MEDS: ABACAVIR SULFATE 300 MG TAB PO SCH (09:13)
[2017-01-14] MEDS: PRAMIPEXOLE DIHYDROCHLORIDE 0.25 MG TAB PO SCH (09:13)
[2017-01-14] MEDS: DOLUTEGRAVIR SODIUM 50 MG TAB PO SCH (09:13)
--- NOTE | 2017-01-14 09:59 | HHI.PR ---
Subjective Remarks Follow up rectal bleeding. Patient states she is still having some bleeding but it is starting to slow down. She is complaining of pain when she is sitting or laying in bed, states the Dilaudid helps but not for long. Denies any chest pain , sob. Last night she did have fevers and was given Tylenol and antibiotics. Denies any chills. Objective Vitals Vital Signs Date Time Temp Pulse Resp B/P Pulse Ox O2 Delivery O2 Flow Rate FiO2 01/14/17 08:34 98.2 88 18 119/74 95 01/14/17 03:51 99.2 88 19 102/63 92 01/14/17 00:12 102.1 102 19 122/68 94 01/13/17 19:33 100.2 94 19 128/60 93 01/13/17 16:04 98.1 89 16 115/72 95 01/13/17 11:35 99.2 99 18 120/72 95 I/O 01/13/17 01/13/17 01/13/17 01/14/17 01/14/17 01/14/17 07:00 15:00 23:00 07:00 15:00 23:00 Intake Total 1000 ml 490 ml Balance 1000 ml 490 ml Intake Oral 1000 ml 50 ml IV Total 440 ml # Voids 3 1 1 # Bowel Movements 0 Result Diagram: 01/14/17 0321 01/14/17 0321 Imaging Last Impressions Chest X-Ray 01/14/17 0000 Signed Impressions: Service Date/Time: Saturday, January 14, 2017 00:40 - CONCLUSION: 1. No acute findings. Mild hyperinflation. Héctor Roldan MD Chest CT 01/13/17 0000 Signed Impressions: Service Date/Time: Saturday, January 14, 2017 03:01 - CONCLUSION: 1. Patchy groundglass opacity present including anterior segment left upper lobe and along posterior aspect of the right lower lobe. Primary differential diagnosis is a mild bronchopneumonia. There is also underlying mild centrilobular emphysema. No effusion or adenopathy. Héctor Roldan MD Abdomen/Pelvis CT 01/12/17 0702 Signed Impressions: Service Date/Time: Thursday, January 12, 2017 08:25 - CONCLUSION: 1. Mucosal pneumonia in the rectum suspicious for neoplasm. Direct visualization is recommended 2. Cholelithiasis René Soriano MD ADDENDUM: The impression is incorrect and should say in #1 mucosal abnormality in the rectum René Soriano MD Objective Remarks GENERAL: This is a well-nourished, well-developed patient. Alert and oriented 3. SKIN: No rashes, ecchymoses or lesions. Cool and dry. HEAD: Atraumatic. Normocephalic. No temporal or scalp tenderness. EYES: Pupils equal round and reactive. Extraocular motions intact. No scleral icterus. No injection or drainage. ENT: Nose without bleeding, purulent drainage or septal hematoma. Airway patent. NECK: Trachea midline. No JVD or lymphadenopathy. CARDIOVASCULAR: Regular rate and rhythm without murmurs, gallops, or rubs. RESPIRATORY: Clear to auscultation. Breath sounds equal bilaterally. No wheezes , rales, or rhonchi. GASTROINTESTINAL: Abdomen soft, non-tender, nondistended. No hepato-splenomegaly , or palpable masses. No guarding. MUSCULOSKELETAL: Extremities without clubbing, cyanosis, or edema. No joint tenderness, effusion, or edema noted. No calf tenderness. NEUROLOGICAL: Awake and alert. Motor and sensory grossly within normal limits. Normal Medications and IVs Current Medications Medications (Trade) Dose Ordered Sig/Estefani Route Start Time Stop Time Status Last Admin Pantoprazole Sodium 80 mg/ Sodium Chloride 100 ml @ 10 mls/hr Q10H IV 01/12/17 06:30 01/14/17 00:47 (NS 1000 ml Inj) 1,000 ml @ 100 mls/hr Q10H IV 01/12/17 12:00 01/13/17 23:36 (NS Flush) 2 ml UNSCH PRN IV FLUSH 01/12/17 11:30 01/14/17 02:36 (NS Flush) 2 ml BID IV FLUSH 01/12/17 21:00 (Zofran Inj) 4 mg Q6H PRN IVP 01/12/17 11:30 (Narcan Inj) 0.4 mg UNSCH PRN IV 01/12/17 11:30 (Proair Hfa Inh) 1 puff Q4H PRN INH 01/12/17 11:30 (Soma) 350 mg TID PRN PO 01/12/17 13:00 01/14/17 06:32 (CeleXA) 40 mg DAILY PO 01/13/17 09:00 01/14/17 09:12 (Neurontin) 300 mg TID PO 01/12/17 13:00 01/14/17 09:12 (Mirapex) 0.125 mg DAILY PO 01/13/17 09:00 01/14/17 09:13 (Protonix) 40 mg DAILY PO 01/13/17 09:00 Hold Patient Own Medication PT OWN MED: (Ipratropium-Albutero... QID INH 01/12/17 13:15 01/13/17 20:53 (Epivir) 300 mg DAILY PO 01/13/17 09:00 01/14/17 09:12 (Ziagen) 600 mg DAILY PO 01/13/17 09:00 01/14/17 09:13 ([place] 5-325 Mg) 1 tab Q4H PRN PO 01/12/17 17:45 01/13/17 00:11 ([place] 10-325 Mg) 1 tab Q4H PRN PO 01/12/17 17:45 01/13/17 23:36 (Dilaudid Pf Inj) 0.4 mg Q4H PRN IV PUSH 01/13/17 09:30 01/14/17 09:12 Acetaminophen 650 mg 650 mg Q4H PRN PO 01/14/17 00:30 01/14/17 00:47 Levofloxacin/ Dextrose 150 ml @ 100 mls/hr Q24H IV 01/14/17 01:00 01/14/17 00:47 (Flagyl 500 Mg Inj) 100 ml @ 100 mls/hr Q6H IV 01/14/17 01:00 01/14/17 06:32 A/P Problem List: (1) GI bleed ICD Code: K92.2 Status: Acute (2) HIV disease ICD Code: B20 Status: Chronic (3) HTN (hypertension) ICD Code: I10 Status: Chronic Assessment and Plan 56-year-old transgender female with history of HIV, who presents for a 7 week history of gradually worsening bloody stools, with a 4 to five-day history of constant sharp, nonradiating rectal pain. She reports weight loss, but is not sure how much. Lower GI bleed, with worsening fatigue, weight loss. Lower GI mass found by colonoscopy, Suspected lower GI malignancy CT abdomen shows Mucosal abnormality in the rectum suspicious for neoplasm. Direct visualization is Monitor hemoglobin. Blood transfusion as necessary HGB 12-->11.5-->9.8--> 10.1 -gastroenterology, following, preformed colonoscopy with biopsy, recommends continued monitoring. -Consult medical oncology for recommendations, they ordered CT chest, and CEA tumor marker pending. CT chest shows patchy groundglass opacity present including anterior segment left upper lobe and along posterior aspect of the right lower lung. -Per medical oncology, will need radiation oncology if rectal cancer confirmed -Pain management with Glasford and IV Dilaudid, increase dilaudid to .5mg Q3hr -Colorectal consult placed Chronic pain. Continue gabapentin, and soma Hypertension, chronic, Blood pressure controlled. -Due to some dehydration, will hold off on lisinopril and hydrochlorothiazide for now. Continue to monitor blood pressure and adjust medications as necessary. SIRS, patient with a temp 102.1, and HR 102, post colonoscopy procedure, no leukocytosis Chest xray clear, chest ct shows opacity present including anterior segment left upper lobe and along posterior aspect of the right lower lung, possible mild bronchial pneumonia -Tylenol for fevers -Blood cultures pending -Cont Levaquin and flagyl IV -Consult ID for recommendations HIV, chronic -CD4 pending. Continue HAART meds. Patient states last CD4 was 1200, and undetectable viral load -To follow up with infectious disease at discharge. Hypokalemia. Potassium 3.2-->3.9 Replaced. Cont to Monitor. Tobaccoism, chronic -Cessation counseling provided. Encouraged to quit GERD, chronic - Continue PPI. DVT prophylaxis: SCDs, due to rectal bleeding will hold chemical prophylaxis Discussed with case management, patient meets inpatient criteria Discharge Planning Pending oncology and colorectal workup Problem Qualifiers (1) GI bleed: Qualified Code: K92.2 - Gastrointestinal hemorrhage, unspecified gastrointestinal hemorrhage type ShannonhussainKelsea LAURENCE January 14, 2017 09:59
[2017-01-14] MEDS: ACETAMINOPHEN/HYDROcodone 325 MG/10 MG TAB PO PRN ×3 (11:20→19:47)
[2017-01-14 12:18] VITALS: BP 102/72; PULSE 89; RESP 18; TEMP 98.2; O2SAT 95
[2017-01-14] MEDS: SODIUM CHLOR 0.9% 1000 ML INJ 1,000 ML IV SCH ×2 (13:56→22:59)
--- NOTE | 2017-01-14 14:03 | PD.ONC.PN ---
Subjective Subjective Remarks Tmax 102.1 overnight. Patient resting comfortably in room. Objective Data Date Time Temp Pulse Resp B/P Pulse Ox O2 Delivery O2 Flow Rate FiO2 01/14/17 12:18 98.2 89 18 102/72 95 01/14/17 08:34 98.2 88 18 119/74 95 01/14/17 03:51 99.2 88 19 102/63 92 01/14/17 00:12 102.1 102 19 122/68 94 01/13/17 19:33 100.2 94 19 128/60 93 01/13/17 16:04 98.1 89 16 115/72 95 Result Diagram: 01/14/17 1237 01/14/17 0321 Laboratory Results Laboratory Tests Test 01/13/17 01/14/17 01/14/17 21:07 03:21 12:37 Hemoglobin 9.8 GM/DL 10.1 GM/DL 10.3 GM/DL White Blood Count 4.7 TH/MM3 Red Blood Count 3.33 MIL/MM3 Hematocrit 28.6 % Mean Corpuscular Volume 85.8 FL Mean Corpuscular Hemoglobin 30.4 PG Mean Corpuscular Hemoglobin 35.4 % Concent Red Cell Distribution Width 14.7 % Platelet Count 180 TH/MM3 Mean Platelet Volume 7.4 FL Sodium Level 136 MEQ/L Potassium Level 3.7 MEQ/L Chloride Level 107 MEQ/L Carbon Dioxide Level 22.1 MEQ/L Anion Gap 7 MEQ/L Blood Urea Nitrogen 8 MG/DL Creatinine 0.77 MG/DL Estimat Glomerular Filtration 78 ML/MIN Rate Random Glucose 90 MG/DL Calcium Level 7.5 MG/DL Carcinoembryonic Antigen 2.0 NG/ML Culture Results Microbiology Date/Time Procedure Status Source Growth 01/14/17 12:37 Aerobic Blood Culture Received Blood Peripheral Pending 01/14/17 12:37 Anaerobic Blood Culture Received Blood Peripheral Pending 01/14/17 12:40 Aerobic Blood Culture Received Blood Peripheral Pending 01/14/17 12:40 Anaerobic Blood Culture Received Blood Peripheral Pending Imaging Studies Last 24 hours Impressions Chest X-Ray 01/14/17 0000 Signed Impressions: Service Date/Time: Saturday, January 14, 2017 00:40 - CONCLUSION: 1. No acute findings. Mild hyperinflation. Héctor Roldan MD Administered Medications Medications (Trade) Dose Ordered Sig/Estefani Route PRN Reason Start Time Stop Time Status Last Admin Dose Admin Pantoprazole Sodium 80 mg/ Sodium Chloride 100 ml @ 10 mls/hr Q10H IV 01/12/17 06:30 01/14/17 00:47 Sodium Chloride (NS 1000 ml Inj) 1,000 ml @ 100 mls/hr Q10H IV 01/12/17 12:00 01/13/17 23:36 Sodium Chloride (NS Flush) 2 ml UNSCH PRN IV FLUSH FLUSH AFTER USING IV ACCESS 01/12/17 11:30 01/14/17 02:36 Carisoprodol (Soma) 350 mg TID PRN PO PAIN 01/12/17 13:00 01/14/17 11:20 Citalopram Hydrobromide (CeleXA) 40 mg DAILY PO 01/13/17 09:00 01/14/17 09:12 Gabapentin (Neurontin) 300 mg TID PO 01/12/17 13:00 01/14/17 12:24 Pramipexole Dihydrochloride (Mirapex) 0.125 mg DAILY PO 01/13/17 09:00 01/14/17 09:13 Patient Own Medication PT OWN MED: (Ipratropium-Albutero... QID INH 01/12/17 13:15 01/13/17 20:53 Lamivudine (Epivir) 300 mg DAILY PO 01/13/17 09:00 01/14/17 09:12 Abacavir Sulfate (Ziagen) 600 mg DAILY PO 01/13/17 09:00 01/14/17 09:13 Acetaminophen/ Hydrocodone Bitart ([place] 5-325 Mg) 1 tab Q4H PRN PO PAIN SCALE 1 TO 6 01/12/17 17:45 01/13/17 00:11 Acetaminophen/ Hydrocodone Bitart ([place] 10-325 Mg) 1 tab Q4H PRN PO PAIN SCALE 7 TO 10 01/12/17 17:45 01/14/17 11:20 Acetaminophen 650 mg 650 mg Q4H PRN PO fever >101 01/14/17 00:30 01/14/17 00:47 Levofloxacin/ Dextrose 150 ml @ 100 mls/hr Q24H IV 01/14/17 01:00 01/14/17 00:47 Metronidazole (Flagyl 500 Mg Inj) 100 ml @ 100 mls/hr Q6H IV 01/14/17 01:00 01/14/17 12:24 Objective Remarks GENERAL: Middle aged male, sitting up in room SKIN: Warm and dry. HEAD: Normocephalic. EYES: No scleral icterus. No injection or drainage. NECK: Supple, trachea midline. CARDIOVASCULAR: Regular rate and rhythm RESPIRATORY: Breath sounds equal bilaterally. No accessory muscle use. GASTROINTESTINAL: Abdomen soft, non-tender, nondistended. EXTREMITIES: No cyanosis NEUROLOGICAL: No obvious focal deficit. Awake, alert, and oriented x3. Assessment/Plan Problem List: (1) GI bleed Status: Acute Plan: --flexible sigmoidoscopy, but the report is not available yet. --suspicious for rectal cancer versus anal cancer. --CT chest negative --If she has localized rectal cancer, she would need preoperative radiation with chemotherapy followed by surgical resection. --await evaluation by colorectal surgeon and radiation Oncologist if confirmed to have rectal cancer. Assessment 56y/o transgender female with possible rectal cancer. --presented to the hospital with a complaint of increased rectal pain for the last four to five days. --blood in stool for the last two months. Plan 1. await flexible sigmoidoscopy report 2. monitor CBC Attending Statement The exam, history, and the medical decision-making described in the above note were completed with the assistance of the mid-level provider. I reviewed and agree with the findings presented. I attest that I had a [id number] encounter with the patient on the same day, and personally performed and documented my assessment and findings in the medical record.No new complaints. CT chest no metastatic disease. Pneumonia noted. Await GI flex sig report. Await final path. This could be rectal ca vs anal canal ca. Will likely need chemo/XRT once we have the diagnosis. Problem Qualifiers (1) GI bleed: Qualified Code: K92.2 - Gastrointestinal hemorrhage, unspecified gastrointestinal hemorrhage type Carmen Goodson January 14, 2017 14:03 Silver Montiel MD January 14, 2017 19:01
[2017-01-14 16:00] VITALS: BP 135/75; PULSE 84; RESP 17; TEMP 97.3; O2SAT 98
--- NOTE | 2017-01-14 18:41 | PD.ID.CON ---
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 COPD Transgender, status post orchiectomy hemorroids Past Surgical History orchiectomy Hernia surgery Left hip pinning in 2012 breast implants Active Ordered Medications Medications where reviewed in EMR Antibiotics Include: levaquine flagyl Family History Non-Contributory. Social History + Tobacco. 1 ppd occasional ETOH. MJ Physical Exam Vital Signs Vital Signs Date Time Temp Pulse Resp B/P Pulse Ox O2 Delivery O2 Flow Rate FiO2 01/14/17 16:00 97.3 84 17 135/75 98 01/14/17 12:18 98.2 89 18 102/72 95 01/14/17 08:34 98.2 88 18 119/74 95 01/14/17 03:51 99.2 88 19 102/63 92 01/14/17 00:12 102.1 102 19 122/68 94 01/13/17 19:33 100.2 94 19 128/60 93 Physical Exam CONSTITUTIONAL/GENERAL: This is a slim patient, in no apparent distress. TUBES/LINES/DRAINS: SKIN: No jaundice, rashes, or lesions. Skin temperature appropriate. Not diaphoretic. HEAD: Atraumatic. Normocephalic. EYES: Pupils equal and round and reactive. Extraocular motions intact. No scleral icterus. No injection or drainage. Fundi not examined. ENT: Hearing grossly normal. Nose without bleeding or purulent drainage.Oral mucosae without visible erythema, exudates, masses, or lesions. Edentulous NECK: Trachea midline. Supple, nontender. CARDIOVASCULAR: Regular rate and rhythm without murmurs, gallops, or rubs. No JVD. Peripheral pulses symmetric. RESPIRATORY/CHEST: Symmetric, unlabored respirations. Clear to auscultation. Breath sounds equal bilaterally. No wheezes, rales, or rhonchi. GASTROINTESTINAL: Abdomen soft, non-tender, mildly distended. No hepato- splenomegaly, or palpable masses. No guarding. Bowel sounds present. GENITOURINARY: Without palpable bladder distension. MUSCULOSKELETAL: Extremities without clubbing, cyanosis, or edema. No joint tenderness or effusion noted. No calf tenderness. No mottling or clubbing. LYMPHATICS: No palpable cervical axillae or supraclavicular adenopathy. NEUROLOGICAL: Awake and alert. Motor and sensory grossly within normal limits. Follows commands. Normal speech . Moves all extremities. PSYCHIATRIC: No obvious anxiety/depression. no apparent hallucinations or other psychotic thought process. Laboratory Laboratory Tests Test 01/13/17 01/14/17 01/14/17 21:07 03:21 12:37 Hemoglobin 9.8 10.1 10.3 White Blood Count 4.7 Red Blood Count 3.33 Hematocrit 28.6 Mean Corpuscular Volume 85.8 Mean Corpuscular Hemoglobin 30.4 Mean Corpuscular Hemoglobin 35.4 Concent Red Cell Distribution Width 14.7 Platelet Count 180 Mean Platelet Volume 7.4 Sodium Level 136 Potassium Level 3.7 Chloride Level 107 Carbon Dioxide Level 22.1 Anion Gap 7 Blood Urea Nitrogen 8 Creatinine 0.77 Estimat Glomerular Filtration 78 Rate Random Glucose 90 Calcium Level 7.5 Carcinoembryonic Antigen 2.0 Date/Time Procedure Status Source Growth 01/14/17 12:40 Aerobic Blood Culture Received Blood Peripheral Pending 01/14/17 12:40 Anaerobic Blood Culture Received Blood Peripheral Pending Result Diagram: 01/14/17 1237 01/14/17 0321 Imaging Last Impressions Chest X-Ray 01/14/17 0000 Signed Impressions: Service Date/Time: Saturday, January 14, 2017 00:40 - CONCLUSION: 1. No acute findings. Mild hyperinflation. Héctor Roldan MD Chest CT 01/13/17 0000 Signed Impressions: Service Date/Time: Saturday, January 14, 2017 03:01 - CONCLUSION: 1. Patchy groundglass opacity present including anterior segment left upper lobe and along posterior aspect of the right lower lobe. Primary differential diagnosis is a mild bronchopneumonia. There is also underlying mild centrilobular emphysema. No effusion or adenopathy. Héctor Roldan MD Abdomen/Pelvis CT 01/12/17 0702 Signed Impressions: Service Date/Time: Thursday, January 12, 2017 08:25 - CONCLUSION: 1. Mucosal pneumonia in the rectum suspicious for neoplasm. Direct visualization is recommended 2. Cholelithiasis René Soriano MD ADDENDUM: The impression is incorrect and should say in #1 mucosal abnormality in the rectum René Soriano MD Assessment and Plan Assessment and Plan Rectal CA, poorly differntiated Fever : - source can be inefction, HIV dz, cancer ? PNA, unable to expectorate HIV dz on 2 drug HAART - chk VL, CD4 - cont levaquine - dc Yolanda Aguirre MD January 14, 2017 18:41
[2017-01-14 20:00] VITALS: BP 159/99; PULSE 84; RESP 20; TEMP 97.4; O2SAT 98
[2017-01-15] VITALS: BP 159/96; PULSE 79; RESP 20; TEMP 97.5; O2SAT 96
[2017-01-15] MEDS: LEVOFLOXACIN 750 MG PREMIX INJ 150 ML IV SCH (00:46)
[2017-01-15] MEDS: HYDROmorphone HCL PF 1 MG/ML VIAL IV PUSH PRN ×7 (00:47→21:57)
[2017-01-15] MEDS: ACETAMINOPHEN/HYDROcodone 325 MG/10 MG TAB PO PRN ×5 (02:37→20:37)
[2017-01-15] MEDS: PANTOPRAZOLE INJ 80 MG in SODIUM CHLORIDE 0.9% INJ 100 ML IV SCH (03:46)
[2017-01-15 03:50] LABS: CD4/CD8 RATIO 1.1 (0.86-5.00)
--- NOTE | 2017-01-15 07:57 | HHI.PR ---
Subjective Remarks Patient seen for follow up rectal bleeding. 01/15/2017-patient seen this morning. No acute events overnight. Amanda c/o [id number] anxiety this AM. Wants PRN med. Previously responded well to valium. Apparently a chronic issue. Also c/o rectal pain rated around 6-7/10. Doesn't feel adequately controlled with PRN pain meds. No other complaints. Denies any abdominal pain, N/V, or F/C. Objective Vitals Vital Signs Date Time Temp Pulse Resp B/P Pulse Ox O2 Delivery O2 Flow Rate FiO2 01/15/17 00:00 97.5 79 20 159/96 96 01/14/17 20:00 97.4 84 20 159/99 98 01/14/17 16:00 97.3 84 17 135/75 98 01/14/17 12:18 98.2 89 18 102/72 95 01/14/17 08:34 98.2 88 18 119/74 95 I/O 01/14/17 01/14/17 01/14/17 01/15/17 01/15/17 01/15/17 07:00 15:00 23:00 07:00 15:00 23:00 Intake Total 720 ml 1552 ml Output Total 400 ml 1500 ml Balance 320 ml 52 ml Intake Oral 720 ml 0 ml IV Total 1552 ml Output Urine Total 400 ml 1500 ml # Voids 2 # Bowel Movements 1 Result Diagram: 01/14/17 19501/14/17 0321 Objective Remarks GENERAL: This is a well-nourished, well-developed patient. Alert and oriented 3. SKIN: No rashes, ecchymoses or lesions. Cool and dry. CARDIOVASCULAR: Regular rate and rhythm without murmurs, gallops, or rubs. RESPIRATORY: Clear to auscultation. Breath sounds equal bilaterally. No wheezes , rales, or rhonchi. GASTROINTESTINAL: Abdomen soft, non-tender, nondistended. No hepato-splenomegaly , or palpable masses. No guarding. MUSCULOSKELETAL: Extremities without clubbing, cyanosis, or edema. No joint tenderness, effusion, or edema noted. No calf tenderness. NEUROLOGICAL: Awake and alert. Motor and sensory grossly within normal limits. Normal A/P Problem List: (1) GI bleed ICD Code: K92.2 Status: Acute (2) HIV disease ICD Code: B20 Status: Chronic (3) HTN (hypertension) ICD Code: I10 Status: Chronic (4) Pneumonia ICD Code: J18.9 Status: Acute (5) Anxiety ICD Code: F41.9 Status: Acute Assessment and Plan 56-year-old transgender female with history of HIV, who presents for a 7 week history of gradually worsening bloody stools, with a 4 to five-day history of constant sharp, nonradiating rectal pain. She reports weight loss, but is not sure how much. Lower GI bleed, with worsening fatigue, weight loss. Lower GI mass found by colonoscopy, path shows poorly differentiated Squamous Cell CA. CT abdomen shows Mucosal abnormality in the rectum suspicious for neoplasm. Monitor hemoglobin. Blood transfusion as necessary HGB 12-->11.5-->9.8--> 10.1-->10.6 -gastroenterology, following, preformed colonoscopy with biopsy, recommends continued monitoring. They have consulted colorectal surgery. -Consult medical oncology for recommendations. CT chest no evidence of malignancy. CEA negative. Will place rad-onc consult given patient now with confirmed rectal CA. -Pain management with [place] and IV Dilaudid. Will add lidocaine jelly for rectal pain. Chronic pain. -Continue gabapentin, and soma. [place] and dilaudid, as above. Hypertension, chronic, Blood pressure controlled. -SBP in the 150s today. Restart home BP meds. Add PRN clonidine. SIRS, patient with a temp 102.1, and HR 102, post colonoscopy procedure, no leukocytosis Chest xray clear, chest ct shows opacity present including anterior segment left upper lobe and along posterior aspect of the right lower lung, possible mild bronchial pneumonia -Tylenol for fevers -Blood cultures 01/14 NGTD. -Cont Levaquin. Flagyl DCed. -ID consulted. Fever could be related to ?PNA, HIV, or malignancy. Checking immunologic studies. Have DCed flagyl, as above. HIV, chronic -CD4 949. Continue HAART meds. Patient states last CD4 was 1200, and undetectable viral load. -To follow up with infectious disease at discharge. Hypokalemia. -resolved. Monitor daily BMP. Tobaccoism, chronic -Cessation counseling provided. Encouraged to quit GERD, chronic - change from protonix drip to protonix 40mg IV BID. DVT prophylaxis -SCDs, due to rectal bleeding will hold chemical prophylaxis Problem Qualifiers (1) GI bleed: Qualified Code: K92.2 - Gastrointestinal hemorrhage, unspecified gastrointestinal hemorrhage type (2) HTN (hypertension): Qualified Code: I10 - Essential hypertension (3) Pneumonia: Qualified Code: J18.9 - Pneumonia of both lungs due to infectious organism, unspecified part of lung Mateus Romero MD R3 January 15, 2017 07:57
[2017-01-15 08:00] VITALS: BP 156/93; PULSE 85; RESP 19; TEMP 96.3; O2SAT 90
[2017-01-15] MEDS ORDERED: cloNIDine HCL 0.1 MG TAB PO PRN (08:15)
[2017-01-15] MEDS: CITALOPRAM HYDROBROMIDE 40 MG TAB PO SCH (08:19)
[2017-01-15] MEDS: GABAPENTIN 300 MG CAP PO SCH ×3 (08:19→16:47)
[2017-01-15] MEDS: ABACAVIR SULFATE 300 MG TAB PO SCH (08:19)
[2017-01-15] MEDS: PRAMIPEXOLE DIHYDROCHLORIDE 0.25 MG TAB PO SCH (08:20)
[2017-01-15] MEDS: DOLUTEGRAVIR SODIUM 50 MG TAB PO SCH (08:20)
[2017-01-15] MEDS: SODIUM CHLORIDE 0.9% FLUSH 10 ML FLUSH IV FLUSH SCH ×2 (08:20→20:44)
[2017-01-15] MEDS: IPRATROPIUM ALBUTEROL INH SCH ×4 (08:20→21:00)
[2017-01-15] MEDS: HYDROCHLOROTHIAZIDE 25 MG TAB PO SCH (08:20)
[2017-01-15] MEDS: LISINOPRIL 5 MG TAB PO SCH (08:20)
[2017-01-15] MEDS: SODIUM CHLOR 0.9% 1000 ML INJ 1,000 ML IV SCH ×2 (08:21→18:42)
--- NOTE | 2017-01-15 09:06 | MB ---
cc: JOHANNA DAO M.D. DATE OF CONSULTATION: 01/14/2017 CHIEF COMPLAINT Squamous cell carcinoma of the anus. HISTORY OF PRESENT ILLNESS The patient is a 56-year-old transgender person, genetically male, female by choice, with a history of HIV. The patient presented to the hospital with a seven-week history of gradually worsening bloody stools and a 4-5 day history of rectal pain. She is not able to quantify it but does report some weight loss. She denies any abdominal pain, nausea, vomiting, diarrhea or constipation. On initial evaluation flexible sigmoidoscopy was performed and biopsies have come back positive for squamous cell carcinoma of the anal canal, PAST MEDICAL HISTORY 1. Hypertension. 2. HIV. 3. COPD. 4. Constipation. PAST SURGICAL HISTORY 1. Hernia surgery. 2. Left hip repair. 3. Orchiectomy. 4. Breast implants. ALLERGIES No known allergies. MEDICATIONS 1. Carisoprodol. 2. Citalopram. 3. Lortab. 4. Soma. 5. Gabapentin. 6. Ibuprofen. SOCIAL HISTORY The patient smokes a half pack per day. Alcohol is occasional. PHYSICAL EXAMINATION GENERAL: A well-nourished, well-developed, alert patient who appears comfortable. NEUROLOGIC: Grossly intact. SKIN: Warm and dry. HEAD: Normocephalic, atraumatic. CARDIOVASCULAR: Regular rate. CHEST: Breathing is symmetric bilaterally and nonlabored. ABDOMEN: Soft, nontender, nondistended. EXTREMITIES: No edema. RECTAL: A rectal exam is deferred to an office visit where I will have better instrumentation. IMAGING Abdomen and pelvis CT shows the abnormality in the rectum suspicious for neoplasm and cholelithiasis. No other significant findings. LABORATORY Hemoglobin 9.9 on admission, 10.3 on the . Chemistry is essentially normal as are coags. Urinalysis is negative. IMPRESSION Squamous cell carcinoma of the anus. The patient will need radiation and chemotherapy as per medical oncology and radiation oncology, and follow-up with myself in the office. The patient is very unlikely to need any kind of surgical intervention, either now or in the future regarding this anal cancer; however, close follow-up with myself will be necessary. When I see the patient in the office within the next week or so I will do an initial exam to establish a baseline size and configuration of her tumor for further follow-up. Thank you very much for your kind referral. MD VENKAT Beckett/LIZETTE /7:06 AM /8:48 AM [facility]
[2017-01-15] MEDS: CARISOPRODOL 350 MG TAB PO PRN ×2 (10:00→18:42)
[2017-01-15] MEDS: PANTOPRAZOLE SODIUM 40 MG VIAL IV PUSH SCH ×2 (10:00→20:39)
[2017-01-15 12:00] VITALS: BP 145/82; PULSE 80; RESP 18; TEMP 96.5; O2SAT 96
[2017-01-15] MEDS: LIDOCAINE 2% JELLY 5 ML TUBE TOPICAL SCH ×2 (12:36→16:47)
[2017-01-15 16:00] VITALS: BP 131/70; PULSE 91; RESP 17; TEMP 95.4; O2SAT 97
[2017-01-15 20:00] VITALS: BP 150/88; PULSE 75; RESP 20; TEMP 97.1; O2SAT 99
[2017-01-16] VITALS: BP 138/80; PULSE 76; RESP 20; TEMP 96.9; O2SAT 93
[2017-01-16] MEDS: HYDROmorphone HCL PF 1 MG/ML VIAL IV PUSH PRN ×6 (01:29→21:43)
[2017-01-16] MEDS: LEVOFLOXACIN 750 MG PREMIX INJ 150 ML IV SCH ×2 (01:34→23:44)
[2017-01-16 05:08] LABS: AUTOMATED NEUTROPHIL # 1.7 TH/MM3 (1.8-7.7); BASOPHIL % 0.5 % (0.0-2.0); EOSINOPHIL # 0.1 TH/MM3 (0-0.4); EOSINOPHIL % 2.7 % (0.0-4.0); HEMO FLAGS DIFF FINAL; LYMPH % 41.8 % (9.0-44.0); LYMPHOCYTE # 1.6 TH/MM3 (1.0-4.8); MEAN CELL VOLUME 84.6 FL (80.0-100.0); MEAN CORPUSCULAR HEMOGLOBIN 28.5 PG (27.0-34.0); MEAN CORPUSCULAR HGB CONC 33.7 % (32.0-36.0); MONO % 10.1 % (0.0-8.0); NEUT % 44.9 % (16.0-70.0); PLATELET COUNT 198 TH/MM3 (150-450); RED BLOOD COUNT 3.67 MIL/MM3 (4.00-5.30); RED CELL DISTRIBUTION WIDTH 14.2 % (11.6-17.2); WHITE BLOOD COUNT 3.8 TH/MM3 (4.0-11.0)
[2017-01-16 05:24] LABS: BICARBONATE 25.9 MEQ/L (21.0-32.0); POTASSIUM 3.3 MEQ/L (3.5-5.1)
[2017-01-16] MEDS: ACETAMINOPHEN/HYDROcodone 325 MG/10 MG TAB PO PRN ×3 (06:45→16:51)
[2017-01-16] MEDS: SODIUM CHLOR 0.9% 1000 ML INJ 1,000 ML IV SCH ×2 (06:46→16:02)
--- NOTE | 2017-01-16 07:40 | HHI.PR ---
Subjective Remarks Patient seen and examined this morning. Vitals are stable and the patient is afebrile. Continues to have pain in rectal area. Had hard time sleeping last night. Denies CP or difficulty breathing. Poor appetite. But feels like she wants to eat today. Reports some constipation, last BM on tuesday. Objective Vital Signs Date Time Temp Pulse Resp B/P Pulse Ox O2 Delivery O2 Flow Rate FiO2 01/16/17 01:59 16 01/16/17 00:00 96.9 76 20 138/80 93 01/15/17 20:00 97.1 75 20 150/88 99 01/15/17 16:00 95.4 91 17 131/70 97 01/15/17 12:00 96.5 80 18 145/82 96 01/15/17 08:00 96.3 85 19 156/93 90 I/O 01/15/17 01/15/17 01/15/17 01/16/17 01/16/17 01/16/17 07:00 15:00 23:00 07:00 15:00 23:00 Intake Total 1552 ml 220 ml 240 ml 1384 ml Output Total 1500 ml 900 ml 400 ml 1300 ml Balance 52 ml -680 ml -160 ml 84 ml Intake Oral 0 ml 220 ml 240 ml 480 ml IV Total 1552 ml 904 ml Output Urine Total 1500 ml 900 ml 400 ml 1300 ml # Bowel Movements 0 Result Diagram: 01/16/17 0431 01/16/17 0431 Imaging Last Impressions Chest X-Ray 01/14/17 0000 Signed Impressions: Service Date/Time: Saturday, January 14, 2017 00:40 - CONCLUSION: 1. No acute findings. Mild hyperinflation. Héctor Roldan MD Chest CT 01/13/17 0000 Signed Impressions: Service Date/Time: Saturday, January 14, 2017 03:01 - CONCLUSION: 1. Patchy groundglass opacity present including anterior segment left upper lobe and along posterior aspect of the right lower lobe. Primary differential diagnosis is a mild bronchopneumonia. There is also underlying mild centrilobular emphysema. No effusion or adenopathy. Héctor Roldan MD Abdomen/Pelvis CT 01/12/17 0702 Signed Impressions: Service Date/Time: Thursday, January 12, 2017 08:25 - CONCLUSION: 1. Mucosal pneumonia in the rectum suspicious for neoplasm. Direct visualization is recommended 2. Cholelithiasis René Soriano MD ADDENDUM: The impression is incorrect and should say in #1 mucosal abnormality in the rectum René Soriano MD Objective Remarks GENERAL: This is a well-nourished, well-developed patient. Alert and oriented 3. SKIN: No rashes, ecchymoses or lesions. Cool and dry. CARDIOVASCULAR: Regular rate and rhythm without murmurs, gallops, or rubs. RESPIRATORY: Clear to auscultation. Breath sounds equal bilaterally. No wheezes , rales, or rhonchi. GASTROINTESTINAL: Abdomen soft, non-tender, nondistended. No hepato-splenomegaly , or palpable masses. No guarding. MUSCULOSKELETAL: Extremities without clubbing, cyanosis, or edema. No joint tenderness, effusion, or edema noted. No calf tenderness. NEUROLOGICAL: Awake and alert. Motor and sensory grossly within normal limits. Normal A/P Problem List: (1) HIV disease ICD Code: B20 (2) GI bleed ICD Code: K92.2 (3) HTN (hypertension) ICD Code: I10 (4) Dyslipidemia ICD Code: E78.5 Assessment and Plan 56-year-old transgender female with history of HIV, who presents for a 7 week history of gradually worsening bloody stools, with a 4 to five-day history of constant sharp, nonradiating rectal pain. She reports weight loss, but is not sure how much. Lower GI bleed, with worsening fatigue, weight loss. Lower GI mass found by colonoscopy, path shows poorly differentiated Squamous Cell CA. CT abdomen shows Mucosal abnormality in the rectum suspicious for neoplasm. Monitor hemoglobin, currently stable. - Gastroenterology, following, preformed colonoscopy with biopsy, recommends continued monitoring. They have consulted colorectal surgery. Follow-up tumor markers. - Consult medical oncology for recommendations. CT chest no evidence of malignancy. CEA negative. Radiation Oncology also consulted - Colorectal Surgery: Patient will need radiation and chemotherapy, may follow up as an outpatient. Unlikely patient will need surgical intervention. - Pain management with [place] and IV Dilaudid. Will add lidocaine jelly for rectal pain. - Pericolace BID billy and milk of mag for constipation. Chronic pain. -Continue gabapentin, and soma. [place] and dilaudid, as above. Hypertension, chronic, Blood pressure controlled. -SBP in the 150s today. Restart home BP meds. Add PRN clonidine. SIRS, patient with a temp 102.1, and HR 102, post colonoscopy procedure, no leukocytosis Chest xray clear, chest ct shows opacity present including anterior segment left upper lobe and along posterior aspect of the right lower lung, possible mild bronchial pneumonia -Tylenol for fevers -Blood cultures 01/14 NGTD. -Cont Levaquin. Flagyl DCed. -ID consulted. Fever could be related to ?PNA, HIV, or malignancy. CD profile resulted in noted. Viral load pending. HIV, chronic -CD4 949. Continue HAART meds. Patient states last CD4 was 1200, and undetectable viral load. -To follow up with infectious disease at discharge. Hypokalemia. -resolved. Monitor daily BMP. Tobaccoism, chronic -Cessation counseling provided. Encouraged to quit GERD, chronic - protonix 40mg IV BID. DVT prophylaxis -SCDs, due to rectal bleeding will hold chemical prophylaxis Discharge Planning DC further workup and recommendations by colorectal surgery, heme/onc, and radiation oncology. Problem Qualifiers (1) GI bleed: Qualified Code: K92.2 - Gastrointestinal hemorrhage, unspecified gastrointestinal hemorrhage type (2) HTN (hypertension): Qualified Code: I10 - Essential hypertension Lesly Fautsin MD R3 January 16, 2017 07:39
[2017-01-16 08:00] VITALS: BP 144/77; PULSE 79; RESP 17; TEMP 96.9; O2SAT 94
[2017-01-16] MEDS: GABAPENTIN 300 MG CAP PO SCH ×3 (08:09→16:51)
[2017-01-16] MEDS: ABACAVIR SULFATE 300 MG TAB PO SCH (08:09)
[2017-01-16] MEDS: HYDROCHLOROTHIAZIDE 25 MG TAB PO SCH (08:09)
[2017-01-16] MEDS: LISINOPRIL 5 MG TAB PO SCH (08:09)
[2017-01-16] MEDS: CITALOPRAM HYDROBROMIDE 40 MG TAB PO SCH (08:09)
[2017-01-16] MEDS: PRAMIPEXOLE DIHYDROCHLORIDE 0.25 MG TAB PO SCH (08:10)
[2017-01-16] MEDS: LIDOCAINE 2% JELLY 5 ML TUBE TOPICAL SCH ×2 (08:10→12:00)
[2017-01-16] MEDS: IPRATROPIUM ALBUTEROL INH SCH ×4 (08:10→21:00)
[2017-01-16] MEDS: DOLUTEGRAVIR SODIUM 50 MG TAB PO SCH (08:10)
[2017-01-16] MEDS: SODIUM CHLORIDE 0.9% FLUSH 10 ML FLUSH IV FLUSH SCH ×2 (08:10→21:00)
[2017-01-16] MEDS ORDERED: MAGNESIUM HYDROXIDE SUSP 30 ML CUP PO ONE (08:30)
[2017-01-16] MEDS: DOCUSATE SODIUM 50 MG/SENNA 8.6 MG TAB PO SCH ×2 (09:03→21:43)
[2017-01-16] MEDS: PANTOPRAZOLE SODIUM 40 MG VIAL IV PUSH SCH ×2 (09:03→21:42)
[2017-01-16] MEDS: CARISOPRODOL 350 MG TAB PO PRN ×2 (10:20→23:40)
[2017-01-16] MEDS: LORazepam 1 MG TAB PO PRN ×2 (12:00→23:40)
[2017-01-16] MEDS ORDERED: PETROLEUM/SHARK LIVER OIL 60 GM TUBE RECTAL PRN (15:15)
[2017-01-16 16:00] VITALS: BP 130/85; PULSE 89; RESP 16; TEMP 97.3; O2SAT 98
[2017-01-16 20:00] VITALS: BP 129/75; PULSE 81; RESP 20; TEMP 96.7; O2SAT 97
[2017-01-17] VITALS: BP 130/72; PULSE 76; RESP 20; TEMP 97.2; O2SAT 98
[2017-01-17] MEDS: ACETAMINOPHEN/HYDROcodone 325 MG/10 MG TAB PO PRN ×3 (00:48→11:09)
[2017-01-17] MEDS: HYDROmorphone HCL PF 1 MG/ML VIAL IV PUSH PRN ×4 (02:31→17:43)
[2017-01-17] MEDS: SODIUM CHLOR 0.9% 1000 ML INJ 1,000 ML IV SCH ×2 (06:26→12:00)
[2017-01-17] MEDS: GABAPENTIN 300 MG CAP PO SCH ×3 (07:57→17:41)
[2017-01-17] MEDS: LISINOPRIL 5 MG TAB PO SCH (07:57)
[2017-01-17] MEDS: HYDROCHLOROTHIAZIDE 25 MG TAB PO SCH (07:57)
[2017-01-17] MEDS: DOCUSATE SODIUM 50 MG/SENNA 8.6 MG TAB PO SCH (07:57)
[2017-01-17] MEDS: PRAMIPEXOLE DIHYDROCHLORIDE 0.25 MG TAB PO SCH (07:58)
[2017-01-17] MEDS: DOLUTEGRAVIR SODIUM 50 MG TAB PO SCH (07:59)
[2017-01-17] MEDS: SODIUM CHLORIDE 0.9% FLUSH 10 ML FLUSH IV FLUSH SCH (07:59)
[2017-01-17] MEDS: CITALOPRAM HYDROBROMIDE 40 MG TAB PO SCH (07:59)
[2017-01-17 08:00] VITALS: BP 119/75; PULSE 86; RESP 16; TEMP 98; O2SAT 96
[2017-01-17] MEDS: IPRATROPIUM ALBUTEROL INH SCH ×3 (08:04→17:41)
[2017-01-17] MEDS: PANTOPRAZOLE SODIUM 40 MG VIAL IV PUSH SCH (08:10)
[2017-01-17] MEDS: ABACAVIR SULFATE 300 MG TAB PO SCH (08:10)
--- NOTE | 2017-01-17 10:55 | PD.ONC.PN ---
Subjective Subjective Remarks Afebrile overnight. Patient resting in room. No complaints. discussed port placement and follow up in clinic. Objective Data Date Time Temp Pulse Resp B/P Pulse Ox O2 Delivery O2 Flow Rate FiO2 01/17/17 08:00 98.0 86 16 119/75 96 01/17/17 03:23 18 01/17/17 02:29 18 01/17/17 00:47 18 01/17/17 00:00 97.2 76 20 130/72 98 01/16/17 20:00 96.7 81 20 129/75 97 01/16/17 16:00 97.3 89 16 130/85 98 01/16/17 11:10 21 01/17/17 01/17/17 01/17/17 07:00 15:00 23:00 Intake Total 220 ml Output Total 500 ml Balance -280 ml Result Diagram: 01/16/17 0431 01/16/17 043 Culture Results Microbiology Date/Time Procedure Status Source Growth 01/14/17 12:37 Aerobic Blood Culture - Preliminary Resulted Blood Peripheral NO GROWTH IN 2 DAYS 01/14/17 12:37 Anaerobic Blood Culture - Preliminary Resulted Blood Peripheral NO GROWTH IN 2 DAYS 01/14/17 12:40 Aerobic Blood Culture - Preliminary Resulted Blood Peripheral NO GROWTH IN 2 DAYS 01/14/17 12:40 Anaerobic Blood Culture - Preliminary Resulted Blood Peripheral NO GROWTH IN 2 DAYS Administered Medications Medications (Trade) Dose Ordered Sig/Estefani Route PRN Reason Start Time Stop Time Status Last Admin Dose Admin Sodium Chloride (NS 1000 ml Inj) 1,000 ml @ 100 mls/hr Q10H IV 01/12/17 12:00 01/17/17 06:26 Sodium Chloride (NS Flush) 2 ml UNSCH PRN IV FLUSH FLUSH AFTER USING IV ACCESS 01/12/17 11:30 01/14/17 02:36 Sodium Chloride (NS Flush) 2 ml BID IV FLUSH 01/12/17 21:00 01/15/17 20:44 Carisoprodol (Soma) 350 mg TID PRN PO PAIN 01/12/17 13:00 01/16/17 23:40 Citalopram Hydrobromide (CeleXA) 40 mg DAILY PO 01/13/17 09:00 01/17/17 07:59 Gabapentin (Neurontin) 300 mg TID PO 01/12/17 13:00 01/17/17 07:57 Pramipexole Dihydrochloride (Mirapex) 0.125 mg DAILY PO 01/13/17 09:00 01/17/17 07:58 Patient Own Medication PT OWN MED: (Ipratropium-Albutero... QID INH 01/12/17 13:15 01/17/17 08:04 Lamivudine (Epivir) 300 mg DAILY PO 01/13/17 09:00 01/17/17 07:58 Abacavir Sulfate (Ziagen) 600 mg DAILY PO 01/13/17 09:00 01/17/17 08:10 Acetaminophen/ Hydrocodone Bitart ([place] 5-325 Mg) 1 tab Q4H PRN PO PAIN SCALE 1 TO 6 01/12/17 17:45 01/13/17 00:11 Acetaminophen/ Hydrocodone Bitart ([place] 10-325 Mg) 1 tab Q4H PRN PO PAIN SCALE 7 TO 10 01/12/17 17:45 01/17/17 06:26 Acetaminophen 650 mg 650 mg Q4H PRN PO fever >101 01/14/17 00:30 01/14/17 00:47 Levofloxacin/ Dextrose (Levaquin 750 Mg Premix Inj) 150 ml @ 100 mls/hr Q24H IV 01/14/17 01:00 01/16/17 23:44 Hydromorphone HCl (Dilaudid Pf Inj) 0.5 mg Q3H PRN IV PUSH breakthrough pain 01/14/17 12:30 01/17/17 08:00 Hydrochlorothiazide (Hydrodiuril) 25 mg DAILY PO 01/15/17 09:00 01/17/17 07:57 Lisinopril (Prinivil) 5 mg DAILY PO 01/15/17 09:00 01/17/17 07:57 Pantoprazole Sodium (Protonix Inj) 40 mg Q12H IV PUSH 01/15/17 10:00 01/17/17 08:10 Lorazepam (Ativan) 1 mg Q6H PRN PO ANXIETY 01/15/17 09:30 01/16/17 23:40 Senna/Docusate Sodium (Henna-Colace) 1 tab BID PO 01/16/17 09:00 01/17/17 07:57 Shark Liver Oil (Preparation H Oint) 1 applic TID PRN RECTAL HEMORRHOIDS 01/16/17 15:15 01/17/17 02:30 Objective Remarks GENERAL: middle aged transgender female, sitting up in chair next to bed in nad. SKIN: Warm and dry. HEAD: Normocephalic. EYES: No injection or drainage. NECK: Supple, trachea midline. CARDIOVASCULAR: Regular rate and rhythm RESPIRATORY: Breath sounds equal bilaterally. No accessory muscle use. GASTROINTESTINAL: Abdomen soft, non-tender, nondistended. EXTREMITIES: No cyanosis NEUROLOGICAL: No obvious focal deficit. Awake, alert, and oriented x3. Assessment/Plan Problem List: (1) GI bleed Status: Acute Plan: --hgb stable -- (2) Squamous cell cancer, anus Status: Acute Plan: --flexible sigmoidoscopy, but the report is not available yet. --CT chest negative --will need preoperative radiation with chemotherapy followed by surgical resection. --seen by CRS, radiation oncology consulted. Assessment 56y/o transgender female with possible rectal cancer. --presented to the hospital with a complaint of increased rectal pain for the last four to five days. --blood in stool for the last two months. Plan 1. consult IR for port placement 2. fs faxed to new patient referrals 3. monitor CBC Attending Statement The exam, history, and the medical decision-making described in the above note were completed with the assistance of the mid-level provider. I reviewed and agree with the findings presented. I attest that I had a [id number] encounter with the patient on the same day, and personally performed and documented my assessment and findings in the medical record. Rectal pain stable. No rectal bleed. Discussed path with pt. Path is consistent with anal canal SCCA. She is going to need concurrent chemo/XRT. Consult IR for port placement. She can f/u out oncology clinic to start treatment. Her questions were answered Problem Qualifiers (1) GI bleed: Qualified Code: K92.2 - Gastrointestinal hemorrhage, unspecified gastrointestinal hemorrhage type Carmen Goodson January 17, 2017 10:55 Silver Montiel MD January 17, 2017 11:51
--- NOTE | 2017-01-17 10:58 | MB ---
cc: JOHANNA DAO M.D., ALEXANDRA A. MD ALVAREZ-FARINETTI, ALVARO CHEW, BOON Y. M.D. DATE OF CONSULTATION: 01/15/2017 DATE OF : 1960 REQUESTING PHYSICIAN Mateus Duarte. DIAGNOSIS Anal squamous cell carcinoma. Stage unknown at the present time. CHIEF COMPLAINT Anal pain, rectal bleeding. REASON FOR VISIT The patient is being evaluated for definitive curative radiotherapy treatment options versus preoperative treatment options. HISTORY OF PRESENT ILLNESS This is a 56-year-old transgender female which says over the last 7-10 days she has been complaining on increased anal pain, as well as rectal bleeding. It appears that the pain first started about two weeks ago. Due to the pain and discomfort , she decided to proceed to the emergency room where she was evaluated. It appears that she has had a biopsy performed which is positive for squamous cell carcinoma. I was unable to retrieve the notes of that examination. The patient has been evaluated by Dr. Silver Montiel as well as Dr. Johanna Dao. Dr. Dao to evaluate the patient in the next week or so as an outpatient to better map the lesion. I have been asked to see the patient in consultation for recommendations regarding definitive curative radiotherapy. Of note, the patient is HIV positive. PAST MEDICAL HISTORY As above. Also history of: 1. COPD. 2. external hemorrhoid. 4. External hemorrhoid. 5. Hypertension. 6. GI bleed. 7. Pneumonia. 8. Anxiety. 9. Fatigue. 10. Hyperlipidemia. MEDICATIONS Medications include: 1. Pro-Air. 2. Soma. 3. Celexa. 4. Catapres. 5. Neurontin. 6. HydroDiuril. 7. [place]. 8. Dilaudid. 9. Zofran. 11. Narcan. PAST SURGICAL HISTORY 1. Orchiectomy. 2. Right hip surgery. 3. Breast implant. ALLERGIES NO KNOWN DRUG ALLERGIES. FAMILY HISTORY Father with head and neck carcinoma. Brother with colon carcinoma. SOCIAL HISTORY The patient smoked and continues to smoke half-pack of cigarettes per day for the last 30 years. The patient drinks socially. REVIEW OF SYSTEMS CONSTITUTIONAL: The patient denies any fevers or chills. Has lost about 10-15 pounds of weight in the last 3 months. EYES: Wears glasses. Denies any double vision. ENT: Denies any pain or difficulty swallowing. NECK: No neck masses. INTEGUMENTARY: Unremarkable. CARDIOVASCULAR: Denies any chest pain, palpitations or arrhythmia. RESPIRATORY: Unremarkable. Denies any hemoptysis, shortness of breath. GASTROINTESTINAL: The patient complaining of anal pain which is much better after being admitted to the hospital, and rectal bleeding. GENITOURINARY: Unremarkable. Denies any hematuria or painful urination. MUSCULOSKELETAL: The patient denies any bone pain. Does have a chronic left hip pain. NEUROLOGICAL: Denies any neurological deficits. No motor function deficits. No clinical signs or symptoms of stroke. PSYCHIATRIC: Denies any depression or suicidal thoughts. ENDOCRINE: Unremarkable. HEMATOLOGIC: History of HIV. DERMATOLOGIC: Unremarkable. PHYSICAL EXAMINATION GENERAL: The patient is oriented x3, in no acute distress or discomfort at the time of the evaluation. VITAL SIGNS: Temperature 98.2, pulse 89, respiratory rate 18, blood pressure 102/72, pulse oximetry 95% on room air. BACK: To deep palpation and percussion of the posterior back no pain was elicited. LUNGS: To auscultation of bilateral lungs were clear to auscultation with appropriate ventilatory respiratory effort. HEART: Heart was regular in rate and rhythm without murmurs. NECK: Palpation of the neck and bilateral supraclavicular are free. ABDOMEN: Palpation of the abdominal cavity reveals no hepatosplenomegaly. No pain elicited. No periumbilical masses. Bilateral inguinal areas are free. No lower extremity edema detected. RECTAL: Exam deferred. NEUROLOGIC EXAMINATION: No neurological deficit detected. Cognitive functions are preserved. No other positive findings. SURGICAL PATHOLOGY 01/13/2017. Colorectal biopsy shows invasive poorly-differentiated squamous cell carcinoma. RADIOLOGY CT of the abdomen and pelvis 01/12/2017. IMPRESSION: Mucosal abnormality in the rectum, suspicious for neoplasm. Cholelithiasis. Chest CT 01/14/2017. Reviewed. 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 The patient is being evaluated for radiotherapy treatment options. PLAN I had a long discussion with the patient and her friends that were in the room with the permission of the patient. I advised the patient that rectal carcinomas are treated differently than squamous cell carcinomas of the anal area. If this is rectal squamous cell carcinoma then the patient will most likely undergo neoadjuvant preoperative concomitant chemoradiotherapy. If this is an anal carcinoma primary then she will receive definitive curative concomitant chemoradiotherapy. The merits, pros and cons and alternatives of radiation were explained. I discussed side effects, complications of the radiotherapy to include but not limited to weakness and fatigue, decreased blood counts, edema of the skin, necrosis of the skin, nausea, vomiting, diarrhea, bowel and bladder damage, bowel and bladder bleeding, bowel and bladder incontinence. I advised the patient that if the tumor is invading the anal sphincter she could have incontinence and seepage and at some point she may need a colostomy. The patient wants to avoid a colostomy as much as possible. I discussed bone damage, nerve damage, loss of hair in the pelvic area which could be permanent, bowel damage and perforation which could lead to . Hemorrhoidal flare-up. After thorough discussion the patient wanted to proceed forward accordingly when feasible. Advised the patient that I will wait for her to get discharged. I will get a PET scan as an outpatient as well as MRI of the pelvis and I will await for the evaluation from Dr. Dao. I will give an appointment for the patient to return in 1 week to discuss treatment options and to review the findings and then proceed accordingly. She was advised if I can be of any further assistance to please let me know, otherwise will proceed as above. MD CASSANDRA GeigerF ARETHA/SURYA /2:50 PM /10:07 AM MTDCally
[2017-01-17] MEDS: LORazepam 1 MG TAB PO PRN (11:08)
[2017-01-17] MEDS ORDERED: VANCOMYCIN INJ 1,000 MG in SODIUM CHLOR 0.9% 250 ML INJ 250 ML IV SCH (11:45)
[2017-01-17] MEDS ORDERED: ceFAZolin 2 GM PREMIX 50 ML IV SCH (11:45)
[2017-01-17 12:00] VITALS: BP 136/76; PULSE 79; RESP 16; TEMP 98.8; O2SAT 96
--- NOTE | 2017-01-17 12:33 | HHI.PR ---
Subjective Remarks Follow-up rectal cancer 01/17/17-patient seen and examined, denies any GI bleed, requesting stronger narcotics for anal pain otherwise stable. Plan for port infusion placement today Objective Vitals Vital Signs Date Time Temp Pulse Resp B/P Pulse Ox O2 Delivery O2 Flow Rate FiO2 01/17/17 12:00 98.8 79 16 136/76 96 01/17/17 08:00 98.0 86 16 119/75 96 01/17/17 03:23 18 01/17/17 02:29 18 01/17/17 00:47 18 01/17/17 00:00 97.2 76 20 130/72 98 01/16/17 20:00 96.7 81 20 129/75 97 01/16/17 16:00 97.3 89 16 130/85 98 I/O 01/16/17 01/16/17 01/16/17 01/17/17 01/17/17 01/17/17 07:00 15:00 23:00 07:00 15:00 23:00 Intake Total 1384 ml 1710 ml 480 ml 220 ml Output Total 1300 ml 450 ml 500 ml Balance 84 ml 1710 ml 30 ml -280 ml Intake Oral 480 ml 960 ml 480 ml 220 ml IV Total 904 ml 750 ml Output Urine Total 1300 ml 450 ml 500 ml # Voids 10 # Bowel Movements 0 0 Result Diagram: 01/16/17 0431 01/16/17 0431 Imaging Last Impressions Chest X-Ray 01/14/17 0000 Signed Impressions: Service Date/Time: Saturday, January 14, 2017 00:40 - CONCLUSION: 1. No acute findings. Mild hyperinflation. Héctor Roldan MD Chest CT 01/13/17 0000 Signed Impressions: Service Date/Time: Saturday, January 14, 2017 03:01 - CONCLUSION: 1. Patchy groundglass opacity present including anterior segment left upper lobe and along posterior aspect of the right lower lobe. Primary differential diagnosis is a mild bronchopneumonia. There is also underlying mild centrilobular emphysema. No effusion or adenopathy. Héctor Roldan MD Abdomen/Pelvis CT 01/12/17 0702 Signed Impressions: Service Date/Time: Thursday, January 12, 2017 08:25 - CONCLUSION: 1. Mucosal pneumonia in the rectum suspicious for neoplasm. Direct visualization is recommended 2. Cholelithiasis René Soriano MD ADDENDUM: The impression is incorrect and should say in #1 mucosal abnormality in the rectum René Soriano MD Objective Remarks GENERAL: NAD SKIN: Warm and dry. HEAD: Normocephalic. EYES: No scleral icterus. No injection or drainage. NECK: Supple, trachea midline. No JVD or lymphadenopathy. CARDIOVASCULAR: Regular rate and rhythm without murmurs, gallops, or rubs. RESPIRATORY: Breath sounds equal bilaterally. No accessory muscle use. GASTROINTESTINAL: Abdomen soft, non-tender, nondistended. MUSCULOSKELETAL: No cyanosis, or edema. BACK: Nontender without obvious deformity. No CVA tenderness. A/P Problem List: (1) GI bleed ICD Code: K92.2 Status: Acute (2) HIV disease ICD Code: B20 Status: Chronic (3) HTN (hypertension) ICD Code: I10 Status: Chronic (4) Pneumonia ICD Code: J18.9 Status: Acute (5) Anxiety ICD Code: F41.9 Status: Acute Assessment and Plan 56-year-old transgender female with history of HIV, who presents for a 7 week history of gradually worsening bloody stools, with a 4 to five-day history of constant sharp, nonradiating rectal pain. She reports weight loss, but is not sure how much. Lower GI bleed, with worsening fatigue, weight loss. Lower GI mass found by colonoscopy, path shows poorly differentiated Squamous Cell CA. CT abdomen shows Mucosal abnormality in the rectum suspicious for neoplasm. Monitor hemoglobin, currently stable. - Gastroenterology, following, preformed colonoscopy with biopsy, - Consult medical oncology for recommendations. CT chest no evidence of malignancy. CEA negative. Radiation Oncology also consulted - Colorectal Surgery: Patient will need radiation and chemotherapy, may follow up as an outpatient. - Pain management with [place] and IV Dilaudid. Will add lidocaine jelly for rectal pain. - Pericolace BID billy and milk of mag for constipation. - Plan for for infusion placement today 01/17/17 Chronic pain. -Continue gabapentin, and soma. [place] and dilaudid, as above. Hypertension, chronic, Blood pressure controlled. -Continue home BP meds. Add PRN clonidine. SIRS, patient with a temp 102.1, and HR 102, post colonoscopy procedure, no leukocytosis Chest xray clear, chest ct shows opacity present including anterior segment left upper lobe and along posterior aspect of the right lower lung, possible mild bronchial pneumonia -Tylenol for fevers -Blood cultures 01/14 NGTD. -Cont Levaquin. Flagyl DCed. -ID consulted. CD profile resulted in noted. Viral load pending. HIV, chronic -CD4 949. Continue HAART meds. Patient states last CD4 was 1200, and undetectable viral load. -To follow up with infectious disease at discharge. Hypokalemia. -resolved. Monitor daily BMP. Tobaccoism, chronic -Cessation counseling provided. Encouraged to quit GERD, chronic - protonix 40mg IV BID. DVT prophylaxis -SCDs, due to rectal bleeding will hold chemical prophylaxis Problem Qualifiers (1) GI bleed: Qualified Code: K92.2 - Gastrointestinal hemorrhage, unspecified gastrointestinal hemorrhage type (2) HTN (hypertension): Qualified Code: I10 - Essential hypertension (3) Pneumonia: Qualified Code: J18.9 - Pneumonia of both lungs due to infectious organism, unspecified part of lung Chauncey Boles MD January 17, 2017 12:33
--- NOTE | 2017-01-17 12:44 | HHI.IDPN ---
Subjective Subjective Remarks no fver no cough co rectal bleeding, pain Antibiotics levaquine Allergies: Coded Allergies: No Known Allergies (Verified , 01/12/17) Objective . Vital Signs Date Time Temp Pulse Resp B/P Pulse Ox O2 Delivery O2 Flow Rate FiO2 01/17/17 12:00 98.8 79 16 136/76 96 01/17/17 08:00 98.0 86 16 119/75 96 01/17/17 03:23 18 01/17/17 02:29 18 01/17/17 00:47 18 01/17/17 00:00 97.2 76 20 130/72 98 01/16/17 20:00 96.7 81 20 129/75 97 01/16/17 16:00 97.3 89 16 130/85 98 01/16/17 01/16/17 01/17/17 15:00 23:00 07:00 Intake Total 1710 ml 480 ml 220 ml Output Total 450 ml 500 ml Balance 1710 ml 30 ml -280 ml Intake Oral 960 ml 480 ml 220 ml IV Total 750 ml Output Urine Total 450 ml 500 ml # Voids 10 # Bowel Movements 0 0 . Laboratory Tests Test 01/16/17 04:31 White Blood Count 3.8 TH/MM3 Red Blood Count 3.67 MIL/MM3 Hemoglobin 10.5 GM/DL Hematocrit 31.0 % Mean Corpuscular Volume 84.6 FL Mean Corpuscular Hemoglobin 28.5 PG Mean Corpuscular Hemoglobin 33.7 % Concent Red Cell Distribution Width 14.2 % Platelet Count 198 TH/MM3 Mean Platelet Volume 7.4 FL Neutrophils (%) (Auto) 44.9 % Lymphocytes (%) (Auto) 41.8 % Monocytes (%) (Auto) 10.1 % Eosinophils (%) (Auto) 2.7 % Basophils (%) (Auto) 0.5 % Neutrophils # (Auto) 1.7 TH/MM3 Lymphocytes # (Auto) 1.6 TH/MM3 Monocytes # (Auto) 0.4 TH/MM3 Eosinophils # (Auto) 0.1 TH/MM3 Basophils # (Auto) 0.0 TH/MM3 CBC Comment DIFF FINAL Differential Comment Laboratory Tests Test 01/16/17 04:31 Sodium Level 135 MEQ/L Potassium Level 3.3 MEQ/L Chloride Level 101 MEQ/L Carbon Dioxide Level 25.9 MEQ/L Anion Gap 8 MEQ/L Blood Urea Nitrogen 8 MG/DL Creatinine 0.51 MG/DL Estimat Glomerular Filtration 125 ML/MIN Rate Random Glucose 98 MG/DL Calcium Level 8.4 MG/DL Imaging Last Impressions Chest X-Ray 01/14/17 0000 Signed Impressions: Service Date/Time: Saturday, January 14, 2017 00:40 - CONCLUSION: 1. No acute findings. Mild hyperinflation. Héctor Roldan MD Chest CT 01/13/17 0000 Signed Impressions: Service Date/Time: Saturday, January 14, 2017 03:01 - CONCLUSION: 1. Patchy groundglass opacity present including anterior segment left upper lobe and along posterior aspect of the right lower lobe. Primary differential diagnosis is a mild bronchopneumonia. There is also underlying mild centrilobular emphysema. No effusion or adenopathy. Héctor Roldan MD Abdomen/Pelvis CT 01/12/17 0702 Signed Impressions: Service Date/Time: Thursday, January 12, 2017 08:25 - CONCLUSION: 1. Mucosal pneumonia in the rectum suspicious for neoplasm. Direct visualization is recommended 2. Cholelithiasis René Soriano MD ADDENDUM: The impression is incorrect and should say in #1 mucosal abnormality in the rectum René Soriano MD Physical Exam CONSTITUTIONAL/GENERAL: This is a slim patient, in no apparent distress. TUBES/LINES/DRAINS: SKIN: No jaundice, rashes, or lesions. EYES: Pupils equal and round and reactive. Extraocular motions intact. No scleral icterus. No injection or drainage. Fundi not examined. CARDIOVASCULAR: Regular rate and rhythm without murmurs, gallops, or rubs. No JVD. Peripheral pulses symmetric. RESPIRATORY/CHEST: Symmetric, unlabored respirations. Clear to auscultation. Breath sounds equal bilaterally. No wheezes, rales, or rhonchi. GASTROINTESTINAL: Abdomen soft, non-tender, mildly distended. No hepato- splenomegaly, or palpable masses. No guarding. Bowel sounds present. MUSCULOSKELETAL: Extremities without clubbing, cyanosis, or edema. NEUROLOGICAL: Awake and alert. Motor and sensory grossly within normal limits. Follows commands. Normal speech . Moves all extremities. PSYCHIATRIC: No obvious anxiety/depression. no apparent hallucinations or other psychotic thought process. Assessment & Plan Remarks Rectal CA, poorly differntiated - chemo/XRT planned Fever : - source can be inefction, HIV dz, cancer - fever resolved ? PNA, unable to expectorate HIV dz on 2 drug HAART - CD4 > 900 - fu VL, if not undetectable his Rx should be changed to 3 or more drugs - cont levaquine x 7 days total (thru 01/20) -OK to ms home from Yolanda Juárez MD January 17, 2017 12:44
[2017-01-17] MEDS ORDERED: LEVA750T PO (13:14)
[2017-01-17] MEDS ORDERED: DILA2TAB2 PO (13:14)
[2017-01-17] MEDS ORDERED: PERI8.6T PO (13:14)
--- NOTE | 2017-01-17 13:20 | HHI.DS ---
Discharge Summary Admission Date January 14, 2017 at 08:09 Discharge Date: January 17, 2017 Admitting Diagnosis rectal bleeding (1) GI bleed ICD Code: K92.2 (2) HIV disease ICD Code: B20 (3) HTN (hypertension) ICD Code: I10 (4) Pneumonia ICD Code: J18.9 (5) Anxiety ICD Code: F41.9 Procedures Port infusion placement 01/17/17 Brief History - From Admission 56-year-old transgender female with history of HIV, who presents for a 7 week history of gradually worsening bloody stools, with a 4 to five-day history of constant sharp, nonradiating rectal pain. She reports weight loss, but is not sure how much. She denies any fevers, cough, chest pain. She reports gradual worsening of generalized fatigue. CBC/BMP: 01/16/17 0431 01/16/17 0431 Significant Findings Laboratory Tests Test 01/14/17 01/16/17 19:59 04:31 Hemoglobin 10.6 GM/DL 10.5 GM/DL (11.6-15.3) (11.6-15.3) White Blood Count 3.8 TH/MM3 (4.0-11.0) Red Blood Count 3.67 MIL/MM3 (4.00-5.30) Hematocrit 31.0 % (35.0-46.0) Monocytes (%) (Auto) 10.1 % (0.0-8.0) Neutrophils # (Auto) 1.7 TH/MM3 (1.8-7.7) Sodium Level 135 MEQ/L (136-145) Potassium Level 3.3 MEQ/L (3.5-5.1) Calcium Level 8.4 MG/DL (8.5-10.1) Imaging Last Impressions Chest X-Ray 01/14/17 0000 Signed Impressions: Service Date/Time: Saturday, January 14, 2017 00:40 - CONCLUSION: 1. No acute findings. Mild hyperinflation. Héctor Roldan MD Chest CT 01/13/17 0000 Signed Impressions: Service Date/Time: Saturday, January 14, 2017 03:01 - CONCLUSION: 1. Patchy groundglass opacity present including anterior segment left upper lobe and along posterior aspect of the right lower lobe. Primary differential diagnosis is a mild bronchopneumonia. There is also underlying mild centrilobular emphysema. No effusion or adenopathy. Héctor Roldan MD Abdomen/Pelvis CT 01/12/17 0702 Signed Impressions: Service Date/Time: Thursday, January 12, 2017 08:25 - CONCLUSION: 1. Mucosal pneumonia in the rectum suspicious for neoplasm. Direct visualization is recommended 2. Cholelithiasis René Soriano MD ADDENDUM: The impression is incorrect and should say in #1 mucosal abnormality in the rectum René Soriano MD PE at Discharge GENERAL: NAD SKIN: Warm and dry. HEAD: Normocephalic. EYES: No scleral icterus. No injection or drainage. NECK: Supple, trachea midline. No JVD or lymphadenopathy. CARDIOVASCULAR: Regular rate and rhythm without murmurs, gallops, or rubs. RESPIRATORY: Breath sounds equal bilaterally. No accessory muscle use. GASTROINTESTINAL: Abdomen soft, non-tender, nondistended. MUSCULOSKELETAL: No cyanosis, or edema. BACK: Nontender without obvious deformity. No CVA tenderness. Hospital Course Lower GI bleed, with worsening fatigue, weight loss. Lower GI mass found by colonoscopy, path shows poorly differentiated Squamous Cell CA. CT abdomen shows Mucosal abnormality in the rectum suspicious for neoplasm. Monitor hemoglobin, currently stable. - Gastroenterology, following, preformed colonoscopy with biopsy, - Consult medical oncology for recommendations. CT chest no evidence of malignancy. CEA negative. Radiation Oncology also consulted - Colorectal Surgery: Patient will need radiation and chemotherapy, may follow up as an outpatient. - Pain management with [place] and IV Dilaudid. Will add lidocaine jelly for rectal pain. - Pericolace BID billy and milk of mag for constipation. - Plan for for infusion placement today 01/17/17 Chronic pain. -Continue gabapentin, and soma. [place] and dilaudid, as above. Hypertension, chronic, Blood pressure controlled. -Continue home BP meds. Add PRN clonidine. SIRS, patient with a temp 102.1, and HR 102, post colonoscopy procedure, no leukocytosis Chest xray clear, chest ct shows opacity present including anterior segment left upper lobe and along posterior aspect of the right lower lung, possible mild bronchial pneumonia -Tylenol for fevers -Blood cultures 01/14 NGTD. -Cont Levaquin. Flagyl DCed. -ID consulted. CD profile resulted in noted. Viral load pending. HIV, chronic -CD4 949. Continue HAART meds. Patient states last CD4 was 1200, and undetectable viral load. -To follow up with infectious disease at discharge. Hypokalemia. -resolved. Tobaccoism, chronic -Cessation counseling provided. Encouraged to quit GERD, chronic - protonix 40mg PO BID. DVT prophylaxis -SCDs, due to rectal bleeding will hold chemical prophylaxis Pt Condition on Discharge: Stable Discharge Disposition: Discharge Home Discharge Time: > 30 minutes Discharge Instructions DIET: Follow Instructions for: Heart Healthy Diet Activities you can perform: Regular-No Restrictions Follow up Referrals: Oncology PCP Follow-up - 1 Week New Medications: Hydromorphone (Dilaudid) 2 Mg Tab 2 MG PO Q8H PRN Pain Management #20 Ref 0 TAB Sennosides-Docusate Sodium (Henna-Colace) 8.6-50 Mg Tab 1 TAB PO BID PRN Constipation #20 Ref 0 TAB Levofloxacin (Levaquin) 750 Mg Tab 750 MG PO DAILY Infection #5 TAB Continued Medications: Abacavir-Lamivudine (Epzicom) 600-300 Mg Tab 1 TAB PO DAILY Hazardous agent; use appropriate precautions for handling & disposal. Mgmt Viral Infection #30 Ref 0 TAB Albuterol 8.5 GM Inh (Proair Hfa 8.5 GM Inh) 90 Mcg/Act Aer 1 PUFF INH Q4H 108 mcg/actuation PRN SHORTNESS OF BREATH #1 Ref 0 INHALER Amitriptyline HCl (Elavil) 25 Mg Tab Carisoprodol (Soma) 350 Mg Tab 350 MG PO TID PRN PAIN #90 Ref 0 TAB Citalopram (Citalopram) 40 Mg Tab 40 MG PO DAILY Control Depression #30 Ref 4 TAB Dolutegravir (Tivicay) 50 Mg Tab 50 MG PO DAILY Mgmt Viral Infection #30 Ref [address] (Nexium) 40 Mg Capdr 40 MG PO DAILY Ref 0 CAP Gabapentin (Gabapentin) 300 Mg Cap 300 MG PO TID #90 Ref 2 CAP Hydrochlorothiazide (Hydrochlorothiazide) 25 Mg Tab 25 MG PO DAILY #30 Ref 0 TAB Hydrocodone-Acetaminophen (Lortab) 7.5-325 Mg Tab 1 TAB PO BID PRN PAIN #60 Ref 0 TAB Ipratropium-Albuterol Inh (Combivent Respimat Inh) 20-100 Mcfp/Act Aero 1 PUFF INH QID Asthma Management #1 Ref 0 INHALER Lisinopril (Lisinopril) 5 Mg Tab 5 MG PO DAILY Blood Pressure Management #30 Ref 0 TAB Pramipexole (Mirapex) 0.125 Mg Tab 0.125 MG PO DAILY Parkinson Disease Mgmt #30 Ref 0 TAB Discontinued Medications: Carisoprodol (Carisoprodol) 350 Mg Tab 350 MG PO TID PRN PAIN #90 Ref 0 TAB Ibuprofen (Ibuprofen) 800 Mg Tab 800 MG PO Q8H PRN Pain/Inflammation #90 Ref 1 TAB Additional Information I Spent over 30 minutes going through discharge plan and prognosis with the patient Chauncey Boles MD January 17, 2017 13:20
[2017-01-17] MEDS ORDERED: MIDAZOLAM HCL 5 MG/5 ML VIAL ONE (15:05)
[2017-01-17] MEDS ORDERED: fentaNYL CITRATE 250 MCG/5 ML AMP ONE (15:06)
[2017-01-17] MEDS ORDERED: LIDOCAINE 1%/EPINEPHrine 1:100,000 SOLN 30 ML VIAL ONE (15:25)
[2017-01-17 16:15] VITALS: BP 138/84; PULSE 87; RESP 18; TEMP 98.1; O2SAT 92
[2017-01-17] MEDS ORDERED: SODIUM CHLORIDE 0.9% FLUSH 10 ML FLUSH IVF PRN (16:15)
--- NOTE | 2017-01-17 16:16 | PD.RAD ---
Post Procedure Progress Note Pre Procedure Diagnosis: (1) Squamous cell cancer, anus Post Procedure Diagnosis: (1) Squamous cell cancer, anus Procedure Date: January 17, 2017 Supervising Radiologist: Tawanda Oliver Proceduralist/Assist: Harvey Lott RT(R) Anesthesia: Local, Conscious Sedation Plan of Activity Patient to Unit: ROPU Patient Condition: Good See PACS Report for procedural detail/treatment Central Venous Access Device Procedure 1 Right Internal Jugular Infusaport Placement single lumen Malay: 8 Tawanda Oliver MD January 17, 2017 16:16
[2017-01-17 16:30] VITALS: BP 135/82; PULSE 85; RESP 16; O2SAT 93
--- NOTE | 2017-01-17 16:44 | RADRPT ---
EXAM DATE/TIME: 01/17/2017 16:08 [place] COMPARISON: No previous studies available for comparison. INDICATIONS : Patient with history of rectal cancer in need of port placement. MEDICAL HISTORY : Hypertension HIV positive. COPD Transgender, status post orchiectomy Constipation SURGICAL HISTORY : Hernia surgery Left hip pinning in 2012 breast implants ENCOUNTER: Initial ACUITY: 4-6 days PAIN SCORE: 7/10 LOCATION: Rectal. FLUORO TIME: 0.7 minutes IMAGE SERIES: 1 SEDATION TIME: 30 minutes ACCESS: Right internal jugular vein SEDATION: 1.) 4 mg midazolam (Versed) IV 2.) 200 mcg fentanyl (Sublimaze) IV Prophylactic antibiotics were administered with appropriate pre-procedure timing. Vancomycin within 2 hours of procedure, Ancef (or alternative) within 1 hour of procedure. DEVICE: 1. 8 [place] single lumen Bard Power Port PROCEDURE : 1. Continuous pulse oximetry and EKG monitoring. 2. Intravenous conscious sedation. 3. Ultrasound guidance for venous access. 4. Fluoroscopic guided implantable central venous port placement. The patient was placed supine. The neck was prepped in sterile fashion. Full sterile technique was u sed, including cap, mask, sterile gloves and gown, and a large sterile sheet. Hand hygiene and 2% ch lorhexidine Betadine was utilized per protocol for cutaneous antisepsis with appropriate dry time for site. The skin and subcutaneous tissues were infiltrated with local anesthetic solution. Under direct ultrasound guidance, central venous access was accomplished in the targeted vessel. The ultrasound images depicting access guidance were stored and saved to PACS for permanent record. A s ubcutaneous pocket was created using blunt dissection. The port was introduced to the pocket. The c atheter tubing was fed through a subcutaneous tunnel to the venotomy site. The catheter tubing was c ut to a suitable length and then was introduced through a valved Peel-Away sheath and positioned with catheter tubing tip at the cavo-atrial junction level. The pocket incision was closed with subcutic ular Vicryl suture. Steri-Strips were applied. The port was flushed and locked with heparin solutio n per protocol. Sterile dressing was applied to the site. The patient tolerated the procedure well. Conscious sedation was performed with the prescribed dosages and duration as above in the presence of an independent trained radiology nurse to assist in the monitoring of the patient. EKG and oximetry remained stable throughout the procedure. The patient tolerated the procedure well and there were no complications. The patient was sent to post anesthesia recovery in stable condition. CONCLUSION: Uncomplicated ultrasound and fluoroscopic guided implanted central venous port catheter placement as described in detail above. An 8 Cuban Power port was placed. Tawanda Oliver MD on January 17, 2017 at 16:42 Board Certified Radiologist. This report was verified electronically.
[2017-01-17] MEDS ORDERED: LEVOFLOXACIN 750 MG TAB PO SCH (18:00)
--- NOTE | 2017-01-19 13:25 | MR ---
cc: ANCA KIM M.D. DATE: 01/12/2017 1960 PROCEDURE Colonoscopy with biopsy. INDICATION 56-year-old male who identified himself as a transgender to female. The patient has known history of colon cancer, had constipation, rectal bleeding in the last few days. PROCEDURE After informing the patient of procedure and complication consent was signed. The patient was placed on his left lateral decubitus. Rectal exam was performed which showed infiltrated mass constricting the rectum and consistent with cancer. Next, the scope was placed in the rectum, advanced under video guidance to the ascending colon. The scope drawn back gradually with visualization of the colonic mucosa down to the rectum. Biopsy was done from the rectum from ulcerated mass that was infiltrating the rectum consistent with cancer. Scope was withdrawn back without any immediate complication. FINDINGS 1. Stool throughout the colon may obscure the vision of small lesion. 2. Cecum was not examined. 3. This was unprepped colon because we want to identify the lesion in the rectum. 4. Rectal mass consistent with cancer. RECOMMENDATION 1. Follow-up biopsy. 2. Oncology consult. 3. Colorectal surgery evaluation. 4. The patient will need full prep colonoscopy in the near future. This can be done as an outpatient. 5. No sign of active bleeding but there is ulceration in the rectal mass, most likely the reason for the bleeding. 6. I discussed with the ER physician the findings and she is going to order oncology ___ colorectal cancers. MD CAMILO Rivera/SURYA /12:58 PM /1:05 PM
[2017-01-19 23:52] LABS: HIV RNA LOG COPIES 3.91 (())
== END 2017-01-17 17:54 | disposition home or self-care (01) | DRG 374 ==
LOC: NEPE 05:44 → NEDA 13:19 → NEPHCDU 16:14 → OBSVTOIN 01-14 08:09 → N07B 01-14 14:35
PROVIDERS: ADMIT Hospitalist; ATTEND Hospitalist
PROC: 0DBP8ZX Excision of Rectum, Via Natural or Artificial Opening Endoscopic, Diagnostic (ICD-10-PCS; 2017-01-12)
PROC: 0JH60WZ Insertion of Totally Implantable Vascular Access Device into Chest Subcutaneous Tissue and Fascia, Open Approach (ICD-10-PCS; principal; 2017-01-17)
PROC: 02HV33Z Insertion of Infusion Device into Superior Vena Cava, Percutaneous Approach (ICD-10-PCS; 2017-01-17)
DX: C21.1 Malignant neoplasm of anal canal (principal); B20 Human immunodeficiency virus [HIV] disease; I48.91 Unspecified atrial fibrillation; J44.9 Chronic obstructive pulmonary disease, unspecified; E86.0 Dehydration; K62.5 Hemorrhage of anus and rectum; I10 Essential (primary) hypertension; E87.6 Hypokalemia; K59.09 Other constipation; F41.9 Anxiety disorder, unspecified; K21.9 Gastro-esophageal reflux disease without esophagitis; F17.210 Nicotine dependence, cigarettes, uncomplicated; F64.9 Gender identity disorder, unspecified
CPT/HCPCS: 36561; 71010; 71260; 74176; 76942; 77001; 80048; 80053; 80076; 81001; 82378; 83690; 85018; 85025; 85027; 85610; 85730; 86355; 86357; 86359; 86360; 86850; 86900; 86901; 87040; 87536; 88305; 96361; 96374; 96375; 96376; 99152; 99153; 99223; C1788; C9113; J0690; J1170; J1642; J1956; J2250; J2270; J3010; J3370; J7030; J7050; Q9967